=== PATIENT | female | born 1985 | race Hispanic/Latino ===

== ENCOUNTER 2019-10-05 01:06 | Emergency (ER) | payer SELFPAY ==
[~2019-10-05] VITALS: Ht 160 cm; Wt 109.3 kg
[2019-10-05] MEDS ORDERED: SODIUM CHLORIDE 0.9% 1000ML 1,000 ML IV STA (01:37)
--- NOTE | 2019-10-05 01:37 | Emergency Department Note ---
History of Present Illnes History of Present Illness Chief Complaint: Genitourinary History of Present Illness This is a 34 year old female COMPLAINS OF URGENCY, FREQUENCY, PAINFUL URINATION AND FEELS LIKE SHE CAN NOT EMPTY HER BLADDER, PT STATED SHE SAW HER OBGYN TODAY AND WAS GIVEN DIFLUCAN BUT THE PAIN IS SO BAD SHE CAN NOT REST PT STATED PAIN 8/10. SHE HAD LAST YEAR WITHOUT COMPLICATION. PT IS SEXUALLY ACTIVE, DENIES STD . 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 Any updates have been documented here. Past Medical History Recent Fever: No Clinical Suspicion of Infectio: No New/Unexplained Change in Ment: No Past Medical History: None Past Surgical History: Other Surgery: I&D OF LEFT LEG Social History Smoking Cessation: Current every day smoker Counseling Performed: Yes Alcohol Use: None Any Illegal Drug Use: No Other Any Pre-Existing Lines (PICC,: No Review of Systems Review of Systems Constitutional: Reports no symptoms EENTM: Reports no symptoms Cardiovascular: Reports no symptoms Respiratory: Reports no symptoms Gastrointestinal: Reports no symptoms Genitourinary: Reports as per HPI, Reports dysuria, Reports pain (BLAADER PAIN) Musculoskeletal: Reports no symptoms Integumentary: Reports no symptoms Neurological: Reports no symptoms Psychological: Reports no symptoms Endocrine: Reports no symptoms Hematological/Lymphatic: Reports no symptoms Physical Exam Related Data Allergies: Coded Allergies: iodine (Verified Allergy, Severe, 10/05/19) Penicillins (Verified Allergy, Intermediate, 10/05/19) Triage Vital Signs Vital Signs Date Time Temp Pulse Resp B/P (MAP) Pulse Ox O2 Delivery O2 Flow Rate FiO2 10/05/19 01:13 97.3 69 18 134/71 100 Room Air Vital signs reviewed: Yes Physical Exam CONSTITUTIONAL Constitutional: Present well-developed, Present well-nourished, Present obese, Present distressed HENT HENT: Present normocephalic, Present atraumatic, Present oropharynx clear/moist, Present nose normal HENT L/R: Present left ext ear normal, Present right ext ear normal EYES Eyes: Reports PERRL, Reports conjunctivae normal NECK Neck: Present ROM normal PULMONARY Pulmonary: Present effort normal, Present breath sounds normal CARDIOVASCULAR Cardiovascular: Present regular rhythm, Present heart sounds normal, Present ca pillary refill normal, Present normal rate GASTROINTESTINAL Abdominal: Present soft, Present nontender, Present bowel sounds normal GENITOURINARY Genitourinary: Present vagina normal (no ulcer lesions outside) SKIN Skin: Present warm, Present dry MUSCULOSKELETAL Musculoskeletal: Present ROM normal NEUROLOGICAL Neurological: Present alert, Present oriented x 3, Present no gross motor or sensory deficits PSYCHOLOGICAL Psychological: Present mood/affect normal, Present judgement normal Results Laboratory Lab results reviewed: Yes Laboratory comments UA c/w mild UTI, WBC 12 Imaging Imaging results reviewed: Yes Imaging Comments no acute Diagnostics Tests Diagnostic test(s) reviewed: Yes Procedures Procedures Procedure: Forrest placement: indication: acute urinary retention time 1:45 am consent: verbal size: 16 Fr post void residual: 850 cc Assessment & Plan Medical Decision Making MDM acute urinary retention, mild UTI Reassessment Reassessment time: 02:54 Reassessment 850 cc of post void residual, feels much better Assessment & Plan Final Impression: (1) Acute urinary retention (2) Acute lower urinary tract infection Depart Disposition: HOME, SELF-CARE Last Vital Signs Date Time Temp Pulse Resp B/P (MAP) Pulse Ox O2 Delivery O2 Flow Rate FiO2 10/05/19 01:13 97.3 69 18 134/71 100 Room Air Home Meds Active Scripts Promethazine Hcl (PROMETHAZINE HCL) 25 Mg Tablet, 25 MG PO Q6H PRN for NAUSEA, #30 TAB Prov:KOKO EVERETT MD 10/05/19 Acetaminophen/Codeine* (TYLENOL # 3*) 1 Ea Tab, 1 TAB PO Q4HR PRN for pain or cough, #30 Prov:KOKO EVERETT MD 10/05/19 Ibuprofen (IBUPROFEN IB) 200 Mg Tablet, 3 TAB PO Q6H PRN for pain, #60 Prov:KOKO EVERETT MD 10/05/19 Tamsulosin Hcl* (FLOMAX*) 0.4 Mg Cap, 0.4 MG PO DAILY, #10 CAP 0 Refills Prov:KOKO EVERETT MD 10/05/19 Ciprofloxacin Hcl (CIPRO) 500 Mg Tablet, 500 MG PO BID, #20 TAB 0 Refills Prov:KOKO EVERETT MD 10/05/19 Physician Attestation Provider Attestation rec pt to leave [facility] in and f/u with urologist next week but patient declines the Forrest. She asks to remove it before she leaves and she will be back if not able to void KOKO EVERETT MD Oct 05, 2019 01:37
[2019-10-05] MEDS ORDERED: CEFTRIAXONE SOD 1 GM VIAL IV ONE (01:45)
[2019-10-05] MEDS ORDERED: ONDANSETRON HCL INJ 2MG/ML 2ML 2 MG/ML VIAL IV ONE (01:45)
[2019-10-05] MEDS ORDERED: ONDANSETRON HCL 4 MG ORAL DISINTEGRATING TAB PO ONE (01:45)
[2019-10-05] MEDS ORDERED: HYDROCODONE/APAP 5MG-325MG TAB PO ONE (01:45)
[2019-10-05] MEDS ORDERED: KETOROLAC TROMETHAMINE 30 MG/ML VIAL IV ONE (01:45)
[2019-10-05] MEDS ORDERED: KETOROLAC TROMETHAMINE 30 MG/ML VIAL ONE (01:52)
[2019-10-05] MEDS ORDERED: ONDANSETRON HCL INJ 2MG/ML 2ML 2 MG/ML VIAL ONE (01:52)
[2019-10-05] MEDS ORDERED: HYDROCODONE/APAP 5MG-325MG TAB ONE (01:52)
[2019-10-05] MEDS ORDERED: CEFTRIAXONE SOD 1 GM/NS 50 ML 50 ML IV ONE (01:53)
[2019-10-05] MEDS ORDERED: SODIUM CHLORIDE 0.9% 1000ML 1,000 ML ONE (01:53)
--- OUTSIDE RECORDS SUMMARY | 2019-10-05 02:30 | XMS REPORT | Continuity of Care Document ---
Author Author [facility] [employer] ExchangeALETHEA [facility] [employer] Address Unknown Phone Unavailable Care Team Providers Care Tester Compressed Gases Name Role Phone [facility] Information Exchange Unavailable Un available Problems Problem Status Onset Date Classification Date Reported Comments Source Full-term premature rupture of membranes , unspecified as to length of time between rupture and onset of labor 04/04/2018 10/10/2018 [facility] R/O SROM Active 03/19/2018 [facility] Other specified diseases and conditions complicating , childbirth and the puerperium 03/13/2018 09/13/2018 [facility] Obesity complicating , third trimester 02/26/2018 09/11/2018 [facility] Other specified related condit ions, third trimester 02/24/2018 09/13/2018 [facility] 36 weeks gestation of 02/24/2018 09/13/2018 [facility] Obesity complicating , second trimester 01/12/2018 05/21/2018 [facility] Decreased movements, second trimes ter, not applicable or unspecified 12/21/2017 07/10/2018 [facility] 27 weeks gestation of 12/21/2017 07/10/2018 [facility] 23 weeks gestation of 11/17/2017 06/06/2018 [facility] Other specified related condit ions, second trimester 11/17/2017 06/06/2018 [facility] Diseases of the digestive system complic ating , first trimester 09/11/2017 03/25/2018 [facility] Constipation, unspecified 09/05/2017 03/25/2018 [facility] Supervision of other high risk pregnanci es, second trimester 09/05/2017 03/19/2018 [facility] Threatened 08/09/2017 08/12/2017 [facility] VAG BLEEDING 8 WKS PREG Active 08/09/2017 [facility] Other specified related condit ions, unspecified trimester 07/26/2017 07/29/2017 [facility] Vomiting, unspecified 07/26/2017 07/29/2017 [facility] 5WKS PREG/ABD PAIN Active 07/26/2017 [facility] Acute pharyngitis due to other specified organisms 07/24/2017 07/27/2017 [facility] SORE THROAT Active 07/23/2017 [facility] Patient currently (finding) Resolved 06/11/2017 Problem 10/10/2018 [facility] VAGINAL DELIVERY Active 04/13/2017 [facility] Inflammatory disease of cervix uteri 01/26/2017 01/29/2017 [facility] Unspecified injury of external genitals, initial encounter 01/26/2017 01/29/2017 [facility] ABD PAIN Active 01/26/2017 [facility] Low back pain (disorder) Active 09/02/2013 Problem 10/10/2018 Data migrated from [employer] on 10/07. [facility] Lumbar radiculopathy (disorder) Active 09/02/2013 Problem 10/10/2018 Data migrated from [employer] on 10/07. [facility] ABDOMINAL PAIN Active 08/09/2011 [facility] FEVER CHILLS ABDOMINAL PAIN LOWER BACK PAIN SEVERE HEA D Active 02/14/2000 [facility] Obesity, unspecified 08/14/2018 [facility] Encounter for screening for fe santosh growth retardation 08/14/2018 [facility] Maternal care for (suspected) chromosoma l abnormality in fetus, not applicable or unspecified 08/14/2018 [facility] Family history of other congenital malfo rmations, deformations and chromosomal abnormalities 08/14/2018 [facility] 32 weeks gestation of 08/14/2018 [facility] Infectious disease (disorder) Active Problem [facility] Pain (finding) Active Problem 10/10/2018 [facility] Pyelonephritis (disorder) Acti ve Problem [facility] 20 weeks gestation of 05/21/2018 [facility] 11 weeks gestation of 03/19/2018 [facility] Cellulitis (morphologic abnormality) Active Problem [facility] Other specified noninflammatory disorders of vagina 09/13/2018 [facility] Personal history of nicotine dependence 09/13/2018 [facility] 12 weeks gestation of 03/25/2018 [facility] Periumbilical pain 06/06/2018 [facility] Cellulitis Active Problem 08/15/2011 [facility] Infection Active Problem 08/15/2011 [facility] Nausea Inactive Problem 08/15/2011 [facility] Pain Active Problem 08/15/2011 [facility] Pyelonephritis Active Problem 08/15/2011 [facility] Single live 10/10/2018 [facility] 40 weeks gestation of 10/10/2018 [facility] Secondary uterine inertia 10/10/2018 [facility] Obstructed labor due to incomplete rotat ion of head, not applicable or unspecified 10/10/2018 [facility] ADMINISTRTVE ENCOUNT NOS Active [facility] Medications Medication Details Route Status Patient Instructions Ordering Provider Order Date Source ibuprofen 800 mg oral tablet 8 00 mg, PO, Q8H, PRN Pain, Take with food, X 10 day, # 36 tab, 0 Refill(s) No Longer Active 03/23/2018 [facility] Docusate Sodium 100 MG Oral Capsule [Colace] 100 mg = 1 cap, PO, BID, PRN Constipation, # 20 cap, 0 Refill(s) Active 03/23/2018 [facility] Acetaminophen 300 MG / Codeine Phosphate 30 MG Oral Tablet [Tylenol with Codeine #3] 1 - 2 tab, PO, Q4H, PRN Pain, X 3 day, # 21 tab, 0 Refill(s) No Longer Active 03/23/2018 [facility] Multivitamins oral tablet 1 tab, Route: PO, Drug Form: TAB, Dosing Weight 120, kg, Daily, Start date: 03/21/18 9:00:00 FILLETER, Duration: 30 day, Stop date: 04/19/18 9:00:00 FILLETER Inactive 03/21/2018 [facility] Ibuprofen Notes: (Same as: Mot rin) "Do Not Crush" Take with food. No Longer Active 03/21/2018 [facility] Acetaminophen 325 MG / Hydrocodone Deepti trate 5 MG Oral Tablet Notes: (Same as: [place] 325/5) Do not ex ceed 4gm/day of acetaminophen. No Longer Active 03/21/2018 [facility] Acetaminophen 325 MG / Hydrocodone Deepti trate 10 MG Oral Tablet Notes: Do not exceed 4gm/day of acetamin ophen. (Same as: [place] 325/10) No Longer Active 03/21/2018 [facility] Lactated Ringers IV 1,000 mL 1 ,000 mL, Rate: 100 ml/hr, Infuse over: 10 hr, Route: IV, Dosing Weight 120 kg, Total Volume: 1,000, Start date: 03/21/18 1:06:00 FILLETER, Duration: 30 day, Stop date: 04/20/18 1:05:00 FILLETER, 2.36, m2 No Longer Active 03/21/2018 [facility] Oxytocin 30 unit, 500 mL, Rate : 42 ml/hr, Infuse over: 11.9 hr, Dosing Weight 120, kg, Route: IV, Total Volume: 500 mL, Start date: 03/21/18 1:06:00 FILLETER, Duration: 2 day, Stop date: 03/23/18 1:05:00 FILLETER, Replace Every: 11.9 hr No Longer Activ e 03/21/2018 [facility] lanolin topical cream Notes: ( Same as:Lanolin) No Longer Active 03/21/2018 [facility] Simethicone Notes: (Same as: M ylicon) No Longer Active 03/21/2018 [facility] Acetaminophen Notes: Do not ex ceed 4 gm/day. (Same as: Tylenol) No Longer Active 03/21/2018 [facility] zolpidem Notes: (Same As: Ambi en) No Longer Active 03/21/2018 [facility] Benzocaine / Menthol Notes: Sa me as: Cepacol No Longer Active 03/21/2018 [facility] Docusate Notes: (Same as: Cola ce) (Do Not Crush) No Longer Active 03/21/2018 [facility] Bisacodyl Notes: (Same As: Dul colax, Bisco-Lax) No Longer Active 03/21/2018 [facility] Ibuprofen Notes: (Same as: Mot rin) "Do Not Crush" Take with food. Inactive 03/21/2018 [facility] diphenhydrAMINE (ANES) Route: IV, Drug form: INJ, ONCE, Stop date: 03/20/18 23:03:00 FILLETER Inactive 03/21/2018 [facility] morphine Sulfate (ANES) Route: IV, Drug form: INJ, ONCE, Stop date: 03/20/18 23:02:00 FILLETER Inactive 03/21/2018 [facility] fentaNYL (ANES) Route: IV, Nate g form: INJ, ONCE, Stop date: 03/20/18 23:02:00 FILLETER Inactive 03/21/2018 [facility] Oxytocin 30 unit, 500 mL, Rate : 42 ml/hr, Infuse over: 11.9 hr, Dosing Weight 120, kg, Route: IV, Total Volume: 500 mL, Start date: 03/20/18 23:00:00 FILLETER, Duration: 2 day, Stop date: 03/22/18 22:59:00 FILLETER, Re place Every: 11.9 hr No Longer Active 03/21/2018 [facility] Lactated Ringers IV 1,000 mL 1 ,000 mL, Rate: 100 ml/hr, Infuse over: 10 hr, Route: IV, Dosing Weight 120 kg, Total Volume: 1,000, Start date: 03/20/18 23:00:00 FILLETER, Duration: 30 day, Stop date: 04/19/18 22:59:00 FILLETER, 2.36, m2 No Longer Active 03/21/2018 [facility] Ondansetron Notes: (Same as: Eduard saxena) MEDICATION WASTE Product Size: 4 mg Product Wasted: _0__ mg No Longer Active 03/21/2018 [facility] Docusate Notes: (Same as: Cola ce) (Do Not Crush) No Longer Active 03/21/2018 [facility] Bisacodyl Notes: (Same As: Dul colax, Correctol) (Do Not Crush) "Do Not Crush" No Longer Active 03/21/2018 [facility] lanolin topical Notes: (Same a s:Lanolin) No Longer Active 03/21/2018 [facility] zolpidem Notes: (Same As: Ambi en) No Longer Active 03/21/2018 [facility] M-M-R II Notes: (Same as: M-M- R II) (yjdmpex-dcauz-eppnqxr virus vaccine 0.5 ml INJ VL) WASTE: F/P - Red; E -Red GIVE PRIOR TO DISCHARGE No Longer Active 03/21/2018 [facility] Benzocaine 200 MG/ML Topical [place] [Dermoplast] Notes: (Same As: Dermoplast) WASTE: Aerosol - Return to Pharmacy FOR EXTERNAL USE ONLY No Longer Active 03/21/2018 [facility] Methylergonovine Notes: (Same as:Methergine) No Longer Active 03/21/2018 [facility] Dermoplast 20% topical spray N otes: (Same As: Dermoplast) WASTE: Aerosol - Return to Pharmacy FOR EXTERNAL USE ONLY No Longer Active 03/21/2018 [facility] midazolam (ANES) Route: IV, Dr ug form: SOLN, ONCE, Stop date: 03/20/18 22:56:00 FILLETER Inactive 03/21/2018 [facility] phenylephrine (ANES) Route: IV , Drug form: INJ, ONCE, Stop date: 03/20/18 22:56:00 FILLETER Inactive 03/21/2018 [facility] acetaminophen (ANES) Route: IV , Drug form: INJ, ONCE, Stop date: 03/20/18 22:46:00 FILLETER Inactive 03/21/2018 [facility] gentamicin (ANES) Route: IV, D rug form: INJ, ONCE, Stop date: 03/20/18 22:36:00 FILLETER Inactive 03/21/2018 [facility] EPINEPHrine-lidocaine (ANES) R oute: EPIDURAL, Drug Form: INJ, ONCE, Stop date: 03/20/18 22:36:00 FILLETER Inactive 03/21/2018 [facility] ondansetron (ANES) Route: IV, Drug form: INJ, ONCE, Stop date: 03/20/18 22:36:00 FILLETER Inactive 03/21/2018 [facility] fentaNYL (ANES) Route: EPIDURA L, Drug form: INJ, ONCE, Stop date: 03/20/18 22:36:00 FILLETER Inactive 03/21/2018 [facility] dexamethasone (ANES) Route: IV , Drug form: INJ, ONCE, Stop date: 03/20/18 22:36:00 FILLETER Inactive 03/21/2018 [facility] oxytocin (ANES) 30 unit Route: IV, Drug form: SOLN, Start date: 03/20/18 22:23:00 FILLETER, Stop date: 03/20/18 23:23:00 FILLETER Inactive 03/21/2018 [facility] Naloxone Notes: Same as Narcan No Longer Active 03/21/2018 [facility] Gentamicin Notes: TIME CRITICA L MEDICATION (Same as Garamycin) For adult patients only: Round to nearest 10 mg per Medical Staff approval No Longer Active 03/21/2018 [facility] Clindamycin 900 mg, 50 mL, Rou te: IVPB, Drug form: INJ, ONCE, Dosing Weight 120, kg, Start date: 03/20/18 22:00:00 FILLETER, Stop date: 03/20/18 22:00:00 FILLETER, ABX Indication: Surgical Prophylaxis Inactive 03/21/2018 [facility] Lactated Ringers Injection IV (ANES) 1000 mL Route: IV, Total Volume: 1,000, Start date: 03/20/18 21:56:00 FILLETER, Stop date: 03/20/18 22:56:00 FILLETER Inactive 03/21/2018 [facility] Diphenhydramine Notes: (Same a s: Benadryl) No Longer Active 03/21/2018 [facility] Nalbuphine Notes: (Same As: Nu maxine) No Longer Active 03/21/2018 [facility] Hydromorphone Notes: (Same as: Dilaudid) No Longer Active 03/21/2018 [facility] Promethazine Notes: Do not giv e IV push. (Same as: Phenergan) No Longer Active 03/21/2018 [facility] Dexamethasone Notes: Concentra tion: 4mg/ml No Longer Active 03/21/2018 [facility] Ondansetron Notes: (Same as: Eduard saxena) MEDICATION WASTE Product Size: 4 mg Product Wasted: _0__ mg No Longer Active 03/21/2018 [facility] Oxycodone Hydrochloride 5 MG Oral Tablet Notes: (Same as: Roxicodone) No Longer Active 03/21/2018 [facility] Acetaminophen Notes: Max aceta minophen 4000 mg/day (4 gm/day). (Same as: Tylenol Extra Strength) No Longer Active 03/21/2018 [facility] Promethazine Notes: Do not giv e IV push. (Same as: Phenergan) No Longer Active 03/21/2018 [facility] Flumazenil Notes: (Same as: Ro mazicon) No Longer Active 03/21/2018 [facility] Dexamethasone Notes: Concentra tion: 4mg/ml No Longer Active 03/21/2018 [facility] Ondansetron Notes: (Same as: Eduard saxena) MEDICATION WASTE Product Size: 4 mg Product Wasted: _0__ mg No Longer Active 03/21/2018 [facility] Naloxone Notes: Same as Narcan No Longer Active 03/21/2018 [facility] Hydromorphone Notes: (Same as: Dilaudid) No Longer Active 03/21/2018 [facility] Calcium Chloride 0.0014 MEQ/ML / Potassi um Chloride 0.004 MEQ/ML / Sodium Chloride 0.103 MEQ/ML / Sodium Lactate 0.028 MEQ/ML Injectable Solution 1,000 mL, Rate: 125 ml/hr, Infuse over: 8 hr, Route: IV, Dosing Weight 120 kg, Total Volume: 1,000, Start date: 03/20/18 21:25:00 FILLETER, Duration: 30 day, Stop date: 04/19/18 21:24:00 FILLETER, 2.36, m2 Inactive 03/21/2018 [facility] Metoclopramide 10 MG Oral Tablet [Reglan] Notes: (Same as: Reglan) Take 30 min before meals Inactive 03/21/2018 [facility] Zofran ODT Notes: (Same as: Zo magalis ODT) Inactive 03/21/2018 [facility] Ondansetron Notes: (Same as: Eduard saxena) MEDICATION WASTE Product Size: 4 mg Product Wasted: _0__ mg Inactive 03/21/2018 [facility] BD Normal Saline Flush Notes: (Same as: BD Posiflush) No Longer Active 03/20/2018 [facility] Diphenhydramine Notes: (Same a s: Benadryl) Inactive 03/20/2018 [facility] Bupivacaine 0.167% + fentaNYL 4 mcg/ml E pidural CADD 200 mL Route: EPIDURAL, Continuous Rate: 10, ml /hr, Infusion site: Lumbar, [employer] dose 5 mL, [employer] dose lockout: 15 minutes, 1 Hour limit: 30 mL, Clinician Bolus: 5 mL, 200, mL, Start date: 03/20/18 11:09:00 FILLETER, Duration: 30, day, Drug Form: INJ, Total volume: 2... No Longer Active 03/20/2018 [facility] Famotidine Notes: (Same as: Pe pcid) Can be dilute in 5- 10cc NS IVP: Slow IV push over at least 2 minutes. No Longer Active 03/20/2018 [facility] Misoprostol Notes: (Same as:Cy totec) Take with food No Longer Active 03/20/2018 [facility] Methylergonovine Notes: (Same as:Methergine) No Longer Active 03/20/2018 [facility] Carboprost Notes: (Same As: He mabate) No Longer Active 03/20/2018 [facility] Citric Acid / sodium citrate N otes: (Same As: Bicitra) Inactive 03/20/2018 [facility] Oxytocin 30 unit, 500 mL, Rate : 42 ml/hr, Infuse over: 11.9 hr, Dosing Weight 120, kg, Route: IV, Total Volume: 500 mL, Start date: 03/20/18 10:24:00 FILLETER, Duration: 2 day, Stop date: 03/22/18 10:23:00 FILLETER, Re place Every: 11.9 hr Inactive 03/20/2018 [facility] Ondansetron Notes: (Same as: Eduard saxena) MEDICATION WASTE Product Size: 4 mg Product Wasted: __0_ mg Inactive 03/20/2018 [facility] Lidocaine Hydrochloride 10 MG/ML Injectable Solution Notes: Preservative free. (Same as: Xylocaine MPF) No Longer Active 03/20/2018 [facility] Terbutaline Notes: DO NOT US E IN MARINE DRILLER AREA (Same As: Brethine) No Longer Active 03/20/2018 [facility] Butorphanol Notes: (Same As: S tadol) No Longer Active 03/20/2018 [facility] Ibuprofen Notes: (Same as: Mot rin) "Do Not Crush" Take with food. Inactive 03/20/2018 [facility] Acetaminophen 325 MG / Hydrocodone Deepti trate 5 MG Oral Tablet Notes: (Same as: [place]ora 325/5) Do not ex ceed 4gm/day of acetaminophen. No Longer Active 03/20/2018 [facility] Calcium Chloride 0.0014 MEQ/ML / Potassi um Chloride 0.004 MEQ/ML / Sodium Chloride 0.103 MEQ/ML / Sodium Lactate 0.028 MEQ/ML Injectable Solution 1,000 mL, 1,000 ml/hr, Infuse Over: 1 hr , Route: IV, 1,000, Drug form: INJ, ONCE, Dosing Weight 120 kg, Start date: 03/20/18 10:24:00 FILLETER, Stop date: 03/20/18 10:24:00 FILLETER, Bolus for regional anesthesia per unit routine Inactive 03/20/2018 [facility] Lactated Ringers IV 1,000 mL 1 ,000 mL, Rate: 125 ml/hr, Infuse over: 8 hr, Route: IV, Dosing Weight 120 kg, Total Volume: 1,000, Start date: 03/20/18 10:24:00 FILLETER, Duration: 30 day, Stop date: 04/19/18 10:23:00 FILLETER, 2.36, m2 Inactive 03/20/2018 [facility] 1 oral capsule 0 Refi ll(s) Active 03/20/2018 [facility] Saline Flush 0.9% Notes: (Same as: BD Posiflush) Inactive 09/05/2017 [facility] Nitrofurantoin 100 MG Oral Capsule [Macrobid] 100 mg = 1 cap, PO, BID, X 7 day, # 14 cap, 0 Refill(s) Active 08/09/2017 [facility] Saline Flush 0.9% Notes: (Same as: BD Posiflush) Inactive 08/09/2017 [facility] Zofran 4 mg, Route: IVP, Drug form: INJ, ONCE, Dosing Weight 110.455, kg, Priority: STAT, Start date: 07/26/17 19:06:00 CDT, Stop date: 07/26/17 19:06:00 CDT Inactive 07/27/2017 [facility] Sodium Chloride 0.9% (Bolus) IV 1,000 mL, 1,000 ml/hr, Infuse Over: 1 hr, Route: IV, 1,000, Drug form: INJ, ONCE, Priority: STAT, Dosing Weight 110.455 kg, Start date: 07/26/17 17:15:00 CDT, Stop date: 07/26/17 17:15:00 CDT Inactive 07/26/2017 [facility] Saline Flush 0.9% Notes: (Same as: BD Posiflush) Inactive 07/26/2017 [facility] Metoclopramide 10 mg, Route: I ROD CUP FILLER, Drug form: INJ, ONCE, Dosing Weight 110.455, kg, Priority: STAT, Start date: 07/26/17 17:15:00 CDT, Stop date: 07/26/17 17:15:00 CDT Inactive 07/26/2017 [facility] Azithromycin 5 Day Dose Pack 250 mg oral tablet 250 mg = 1 tab, PO, Daily, TAKE 2 TABLETS ON DAY 1; TAKE 1 TABLET ON DAYS 2 - 5, X 5 day, # 6 tab, 0 Refill(s) Active 07/24/2017 [facility] Ondansetron 4 MG Disintegrating Tablet [Zofran] 4 mg = 1 tab, PO, TID, PRN Nausea and Vomiting, # 21 tab, 0 Refill(s) Active 07/24/2017 [facility] Metoclopramide 10 MG Oral Tablet Notes: (Same as: Reglan) Take 30 min before meals Inactive 07/24/2017 [facility] Acetaminophen Notes: Do not ex ceed 4 gm/day. (Same as: Tylenol) Inactive 07/24/2017 [facility] Saline Flush 0.9% Notes: (Same as: BD Posiflush) Inactive 07/24/2017 [facility] Sodium Chloride 0.9% (Bolus) IV 1,000 mL, 1000 ml/hr, Infuse Over: 1 hr, Route: IV, 1,000, Drug form: INJ, ONCE, Priority: STAT, Dosing Weight 100 kg, Start date: 07/24/17 6:12:00 CDT, Stop date: 07/24/17 6:12:00 CDT Inactive 07/24/2017 [facility] tramadol hydrochloride 50 MG Oral Tablet 50 mg = 1 tab, PO, Q6H, PRN Pain, X 5 day, # 24 tab, 0 Refill(s) Active 01/26/2017 [facility] Azithromycin 16.7 MG/ML Oral Suspension 1 gm, 1 ea, Route: PO, ONCE, Dosing Weight 100, kg, Start date: 01/26/17 8:15:00 FILLETER, Stop date: 01/26/17 8:15:00 FILLETER, ABX Indication: Genital Tract Infection Inactive 01/26/2017 [facility] Ceftriaxone 250 mg, Route: IM, Drug form: PDR/INJ, ONCE, Dosing Weight 100, kg, Priority: STAT, Start date: 01/26/17 8:14:00 FILLETER, Stop date: 01/26/17 8:14:00 FILLETER, ABX Indication: Genital Tract Infection Inactive 01/26/2017 [facility] Acetaminophen 325 MG / Hydrocodone Deepti trate 5 MG Oral Tablet 1 tab, Route: PO, Dosing Weight 100, kg, ONCE, STAT, Start date: 01/26/17 8:12:00 FILLETER, Stop date: 01/26/17 8:12:00 FILLETER Inactive 01/26/2017 [facility] Lotrisone 1 appl, Route: TOP, BID, Drug form: CRM, Start date: 08/13/11 9:00:00, Duration: 30 day, Stop date: 09/11/11 17:00:00 TOP No Longer Active [place] 08/12 [facility] cefadroxil 500 mg oral capsule 1,000 mg, 2 cap, PO, Q12H, 56 cap, Substitution Allowed, CAP PO Active Chap [facility] 08/12/2011 [facility] Lovenox 40 mg, 0.4 mL, Route: SUB-Q, Drug form: INJ, Daily, Start date: 08/11/11 9:00:00, Duration: 30 day, Stop date: 09/09/11 9:00:00 SUB-Q No Longer Active [facility] 08/11/2011 [facility] Normosol-R IV 1,000 mL 1,000 m L, Rate: 75 ml/hr, Infuse over: 13.3 hr, Route: IV, Dosing Weight 151.847 kg, Total Volume: 1,000, Start date: 08/10/11 10:52:00, Duration: 30 day, Stop date: 09/09/11 10:51:00 IV No Longer Active [place] 07/15 [facility] Normosol-M IV 1000 mL 1,000 mL , Rate: 75 ml/hr, Infuse over: 13.3 hr, Route: IV, Dosing Weight 151.847 kg, Total Volume: 1,000, Start date: 08/10/11 10:42:00, Duration: 30 day, Stop date: 09/09/11 10:41:00 IV No Longer Active [facility] 07/15 [facility] potassium chloride 30 mEq, 15 mL, Route: IVPB, Drug form: INJ, ONCE, Start date: 08/10/11 10:42:00, Stop date: 08/10/11 10:42:00 IVPB No Longer Active [facility] 07/15 [facility] vancomycin 1.5 gm, 500 mL, Rou te: IVPB, Drug form: SOLN, Q12H, Start date: 08/10/11 8:00:00, Duration: 30 day, Stop date: 09/08/11 20:00:00 IVPB No Longer Active [place] 08/10/2011 [facility] D5W 1/2NS + KCL 20mEq/L 1000ml (Premix) 1,000 mL 1,000 mL, Rate: 125 ml/hr, Infuse over: 8 hr, Route: IV, Dosing Weight 151.847 kg, Total Volume: 1,000, Start date: 08/10/11 0:33:00, Duration: 30 day, Stop date: 09/09/11 0:32:00 IV No Longer Active [facility] 08/10/2011 [facility] acetaminophen 500 mg, 1 tab, R oute: PO, Drug form: TAB, Q4H, PRN Fever, Start date: 08/09/11 20:17:00, Duration: 30 day, Stop date: 09/08/11 20:16:00 [facility] vancomycin 2 gm, 500 mL, Route : IVPB, Drug form: SOLN, ONCE, Start date: 08/09/11 20:00:00, Stop date: 08/09/11 20:00:00 IVPB No Longer Active [place] 08/10/2011 [facility] Merrem 1 gm, Route: IVPB, ABXQ 8H, Start date: 08/09/11 19:00:00, Duration: 30 day, Stop date: 09/08/11 11:00:00 IVPB No Longer Active [place] 08/10/2011 [facility] Protonix 40 mg, Route: IVP, Be fore Dinner, Start date: 08/09/11 16:30:00, Stop date: 09/07/11 16:30:00 IVP No Longer Active [place] 08/09/2011 [facility] [place] [facility] Lovenox 150 mg, 1 mL, Route: S UB-Q, Drug form: INJ, Q12H, Priority: STAT, Start date: 08/09/11 16:08:00, Duration: 30 day, Stop date: 09/08/11 16:00:00 SUB-Q No Longer Active [place] 08/09/2011 [facility] Zofran 4 mg, 2 mL, Route: IVP, Drug form: INJ, Q4H, PRN Nausea, Start date: 08/09/11 14:55:00, Duration: 30 day, Stop date: 09/08/11 14:54:00 IVP No Longer Active [facility] 08/09/2011 [facility] meperidine 25 mg, 0.5 mL, Rout e: IV, Drug form: INJ, Q4H, PRN Pain, Start date: 08/09/11 14:55:00, Duration: 4 day, Stop date: 08/13/11 14:54:00 IV No Longer Active [facility] 08/09/2011 [facility] Rocephin 2 gm, Route: IVPB, ON CE, Start date: 08/09/11 12:30:00, Stop date: 08/09/11 12:30:00 IVPB No Longer Active [facility] 08/09/2011 [facility] ketorolac 30 mg/mL injectable solution 30 mg, 1 mL, Route: IV, Drug form: INJ, Q6H, PRN Pain, Start date: 08/09/11 11:56:00, Duration: 4 day, Stop date: 08/13/11 11:55:00 IV No Longer Active [facility] 08/09/2011 [facility] [place] [facility] Dextrose 5% with 0.45% NaCl IV 1,000 mL 1,000 mL, Rate: 125 ml/hr, Infuse over: 8 hr, Route: IV, Dosing Weight 145.455 kg, Total Volume: 1,000, Start date: 08/09/11 11:28:00, Duration: 30 day, Stop date: 09/08/11 11:27:00 IV No Longer Active [place] 08/09/2011 [facility] [place] [facility] Allergies, Adverse Reactions, Alerts Substance Category Reaction Severity Reaction type Status Date Reported Comments Source penicillins<sup>1</sup> Assert ion PENICILLINS Drug allergy Active 09/02/2013 Data migrated from [employer] on 10/06. Originally documented as PENICILLIN. [facility] diazepam Assertion Drug allergy Active [facility] Celebrex Assertion Drug allergy Active [facility] MiraLax Assertion Drug allergy Active [facility] Food Seafood Assertion Propensity to adverse reacti ons to substance Active [facility] iodine Assertion Drug allergy Active [facility] Morphine Sulfate ADD-[place] A ssertion Drug aller gy Active [facility] penicillins Assertion PENICILLINS Drug allergy Active [facility] Immunizations Immunization Date Given Site Status Last Updated Comments Source diphtheria/pertussis, acel/tetanus adult 03/22/2018 Left Deltoid completed [facility] Results Order Name Results Value Reference Range Date Interpretation Comments Source CHEM PANEL A/G Ratio 0.6 0.7 - 1.6 03/23/2018 [facility] CHEM PANEL eGFR 127 03/23/2018 Result Comment: The eGFR is calculated using the CKD-EPI formula. In most young, healthy individuals the eGFR will be >90 mL/min/1.73m2. The eGFR declines with age. An eGFR of 60-89 may be normal in some populations, particularly the elderly, for whom the CKD-EPI formula has not been extensively validated. Use of the eGFR is not recommended in the following populations:

Individuals with unstable creatinine concentrations, including patients and those with serious co-morbid conditions.

Patients with extremes in muscle mass or diet.

The data above are obtained from the National Kidney Disease Education Program (NKDEP) which additionally recommends that when the eGFR is used in patients with extremes of body mass index for purposes of drug dosing, the eGFR should be multiplied by the estimated BMI. [facility] CHEM PANEL Globulin 3.8 2.7 - 4.2 03/23/2018 [facility] CHEM PANEL B/C Ratio 15 6 - 25 03/23/2018 [facility] CHEM PANEL AGAP 5.1 10.0 - 20.0 03/23/2018 [facility] CHEM PANEL Bili Total 0.4 0.2 - 1.3 03/23/2018 [facility] CHEM PANEL CO2 32 24 - 32 03/23/2018 [facility] CHEM PANEL Chloride Lvl 106 95 - 109 03/23/2018 [facility] CHEM PANEL Calcium Lvl 8.3 8.5 - 10.5 03/23/2018 [facility] CHEM PANEL Creatinine Lvl 0.54 0.50 - 1.40 03/23/2018 [facility] CHEM PANEL Glucose Lvl 79 70 - 99 03/23/2018 [facility] CHEM PANEL BUN 8 7 - 22 03/23/2018 [facility] CHEM PANEL Sodium Lvl 139 135 - 145 03/23/2018 [facility] CHEM PANEL Potassium Lvl 4.1 3.5 - 5.1 03/23/2018 [facility] CHEM PANEL Albumin Lvl 2.4 3.5 - 5.0 03/23/2018 [facility] CHEM PANEL Total Protein 6.2 6.4 - 8.4 03/23/2018 [facility] CHEM PANEL Alk Phos 155 39 - 136 03/23/2018 [facility] CHEM PANEL AST 41 0 - 37 03/23/2018 [facility] CHEM PANEL ALT 72 0 - 65 03/23/2018 [facility] CHEM PANEL eGFR 130 03/22/2018 Result Comment: The eGFR is calculated using the CKD-EPI formula. In most young, healthy individuals the eGFR will be >90 mL/min/1.73m2. The eGFR declines with age. An eGFR of 60-89 may be normal in some populations, particularly the elderly, for whom the CKD-EPI formula has not been extensively validated. Use of the eGFR is not recommended in the following populations:

Individuals with unstable creatinine concentrations, including patients and those with serious co-morbid conditions.

Patients with extremes in muscle mass or diet.

The data above are obtained from the National Kidney Disease Education Program (NKDEP) which additionally recommends that when the eGFR is used in patients with extremes of body mass index for purposes of drug dosing, the eGFR should be multiplied by the estimated BMI. [facility] CHEM PANEL A/G Ratio 0.6 0.7 - 1.6 03/22/2018 [facility] CHEM PANEL Globulin 3.3 2.7 - 4.2 03/22/2018 [facility] CHEM PANEL Glucose Lvl 89 70 - 99 03/22/2018 [facility] CHEM PANEL BUN 8 7 - 22 03/22/2018 [facility] CHEM PANEL B/C Ratio 16 6 - 25 03/22/2018 [facility] CHEM PANEL AGAP 10.9 10.0 - 20.0 03/22/2018 [facility] CHEM PANEL Potassium Lvl 3.9 3.5 - 5.1 03/22/2018 [facility] CHEM PANEL Sodium Lvl 138 135 - 145 03/22/2018 [facility] CHEM PANEL Creatinine Lvl 0.50 0.50 - 1.40 03/22/2018 [facility] CHEM PANEL Chloride Lvl 106 95 - 109 03/22/2018 [facility] CHEM PANEL ALT 82 0 - 65 03/22/2018 [facility] CHEM PANEL Albumin Lvl 2.1 3.5 - 5.0 03/22/2018 [facility] CHEM PANEL Bili Total 0.5 0.2 - 1.3 03/22/2018 [facility] CHEM PANEL Alk Phos 137 39 - 136 03/22/2018 [facility] CHEM PANEL AST 52 0 - 37 03/22/2018 [facility] CHEM PANEL Total Protein 5.4 6.4 - 8.4 03/22/2018 [facility] CHEM PANEL Calcium Lvl 8.6 8.5 - 10.5 03/22/2018 [facility] CHEM PANEL CO2 25 24 - 32 03/22/2018 [facility] HEMATOLOGY Hgb 10.9 12.0 - 16.0 03/21/2018 [facility] HEMATOLOGY Hct 31.9 36.0 - 48.0 03/21/2018 [facility] BLOOD BANK RESULTS Antibody Scrn Negative (03/20/18 10:50 AM) 03/20/2018 [facility] BLOOD BANK RESULTS ABO/Rh O POS 03/20/2018 [facility] HEMATOLOGY Basophils 0.4 0.0 - 1.0 03/20/2018 [facility] HEMATOLOGY Lymphocytes # 1.2 1.0 - 5.5 03/20/2018 [facility] HEMATOLOGY Monocytes # 0.4 0.0 - 0.8 03/20/2018 [facility] HEMATOLOGY Eosinophils # 0.1 0.0 - 0.5 03/20/2018 [facility] HEMATOLOGY Neutrophils # 8.4 1.5 - 8.1 03/20/2018 [facility] HEMATOLOGY Segs 82.4 45.0 - 75.0 03/20/2018 [facility] HEMATOLOGY Eosinophils 0.8 0.0 - 4.0 03/20/2018 [facility] HEMATOLOGY Lymphocytes 12.0 20.0 - 40.0 03/20/2018 [facility] HEMATOLOGY Monocytes 4.4 2.0 - 12.0 03/20/2018 [facility] HEMATOLOGY MPV 8.9 7.4 - 10.4 03/20/2018 [facility] HEMATOLOGY Platelet 187 133 - 450 03/20/2018 [facility] HEMATOLOGY RDW 12.6 11.5 - 14.5 03/20/2018 [facility] HEMATOLOGY WBC 10.1 3.7 - 10.4 03/20/2018 [facility] HEMATOLOGY RBC 3.99 4.20 - 5.40 03/20/2018 [facility] HEMATOLOGY Hgb 12.4 12.0 - 16.0 03/20/2018 [facility] HEMATOLOGY Hct 36.7 36.0 - 48.0 03/20/2018 [facility] HEMATOLOGY MCV 92.1 80.0 - 98.0 03/20/2018 [facility] HEMATOLOGY MCHC 33.8 32.0 - 36.0 03/20/2018 [facility] HEMATOLOGY MCH 31.1 27.0 - 31.0 03/20/2018 [facility] IMMUNOLOGY HIV. Negat andrey *NA* (03/20/18 10:50 AM) Negative 03/20/2018 [facility] IMMUNOLOGY Hep Bs Ag Negat andrey *NA* (03/20/18 10:50 AM) Negative 03/20/2018 [facility] IMMUNOLOGY Treponemal Ab Non-R eactive *NA* (03/20/18 10:50 AM) Non 03/20/2018 [facility] BODY FLUIDS Amnisure ROM Posi tive *ABN* (03/20/18 9:50 AM) Negative 03/20/2018 [facility] DRUG SCREEN UDS Note See Note *NA* (12/21/17 11:29 AM) 12/21/2017 [facility] DRUG SCREEN U Cannab Scr Nega tive *NA* (12/21/17 11:29 AM) Negative 12/21/2017 [facility] DRUG SCREEN U Cocaine Scr Nega tive *NA* (12/21/17 11:29 AM) Negative 12/21/2017 [facility] DRUG SCREEN U Amph Scr Nega tive *NA* (12/21/17 11:29 AM) Negative 12/21/2017 [facility] DRUG SCREEN U Benzodiaz Scr Nega tive *NA* (12/21/17 11:29 AM) Negative 12/21/2017 [facility] DRUG SCREEN U Claire Scr Nega tive *NA* (12/21/17 11:29 AM) Negative 12/21/2017 [facility] DRUG SCREEN U Opiate Scr Nega tive *NA* (12/21/17 11:29 AM) Negative 12/21/2017 [facility] DRUG SCREEN U Phencyclidine Scr Nega tive *NA* (12/21/17 11:29 AM) Negative 12/21/2017 [facility] URINE AND STOOL UA Bacteria Occasional /HPF None Seen /HPF 12/21/2017 [facility] URINE AND STOOL UA RBC <1 0 - 2 12/21/2017 [facility] URINE AND STOOL UA WBC 1 0 - 5 12/21/2017 [facility] URINE AND STOOL UA Sq Epi Occasional /LPF Few /LPF 12/21/2017 [facility] URINE AND STOOL UA Leuk Est Negative (12/21/17 11:29 AM) Negative 12/21/2017 [facility] URINE AND STOOL UA Protein Negative (12/21/17 11:29 AM) Negative 12/21/2017 [facility] URINE AND STOOL UA Glucose Negative *NA* (12/21/17 11:29 AM) Negative 12/21/2017 [facility] URINE AND STOOL UA pH 7.0 5.0 - 8.0 12/21/2017 [facility] URINE AND STOOL UA Spec Grav 1.001 <=1.030 12/21/2017 [facility] URINE AND STOOL UA Urobilinogen <=1.0 mg/dL 0.1 - 1.0 12/21/2017 [facility] URINE AND STOOL UA Nitrite Negative (12/21/17 11:29 AM) Negative 12/21/2017 [facility] URINE AND STOOL UA Ketones Negative *NA* (12/21/17 11:29 AM) Negative 12/21/2017 [facility] URINE AND STOOL UA Bili Negative *NA* (12/21/17 11:29 AM) Negative 12/21/2017 [facility] URINE AND STOOL UA Blood Negative (12/21/17 11:29 AM) Negative 12/21/2017 [facility] URINE AND STOOL UA Color Light Yellow *NA* (12/21/17 11:29 AM) Yellow 12/21/2017 [facility] URINE AND STOOL UA Turbidity Clear (12/21/17 11:29 AM) Clear 12/21/2017 [facility] CHEM PANEL A/G Ratio 0.7 0.7 - 1.6 11/18/2017 [facility] CHEM PANEL B/C Ratio 16 6 - 25 11/18/2017 [facility] CHEM PANEL AGAP 10.2 10.0 - 20.0 11/18/2017 [facility] CHEM PANEL Globulin 3.6 2.7 - 4.2 11/18/2017 [facility] CHEM PANEL eGFR 137 11/18/2017 Result Comment: The eGFR is calculated using the CKD-EPI formula. In most young, healthy individuals the eGFR will be >90 mL/min/1.73m2. The eGFR declines with age. An eGFR of 60-89 may be normal in some populations, particularly the elderly, for whom the CKD-EPI formula has not been extensively validated. Use of the eGFR is not recommended in the following populations:

Individuals with unstable creatinine concentrations, including patients and those with serious co-morbid conditions.

Patients with extremes in muscle mass or diet.

The data above are obtained from the National Kidney Disease Education Program (NKDEP) which additionally recommends that when the eGFR is used in patients with extremes of body mass index for purposes of drug dosing, the eGFR should be multiplied by the estimated BMI. [facility] CHEM PANEL Alk Phos 88 39 - 136 11/18/2017 [facility] CHEM PANEL Bili Total 0.3 0.2 - 1.3 11/18/2017 [facility] CHEM PANEL ALT 32 0 - 65 11/18/2017 [facility] CHEM PANEL AST 19 0 - 37 11/18/2017 [facility] CHEM PANEL Albumin Lvl 2.6 3.5 - 5.0 11/18/2017 [facility] CHEM PANEL Total Protein 6.2 6.4 - 8.4 11/18/2017 [facility] CHEM PANEL Calcium Lvl 8.4 8.5 - 10.5 11/18/2017 [facility] CHEM PANEL CO2 27 24 - 32 11/18/2017 [facility] CHEM PANEL Sodium Lvl 139 135 - 145 11/18/2017 [facility] CHEM PANEL Creatinine Lvl 0.43 0.50 - 1.40 11/18/2017 [facility] CHEM PANEL Chloride Lvl 106 95 - 109 11/18/2017 [facility] CHEM PANEL Potassium Lvl 4.2 3.5 - 5.1 11/18/2017 [facility] CHEM PANEL BUN 7 7 - 22 11/18/2017 [facility] CHEM PANEL Glucose Lvl 73 70 - 99 11/18/2017 [facility] CHEM PANEL Amylase Lvl 36 25 - 115 11/18/2017 [facility] CHEM PANEL Lipase Lvl 72 73 - 393 11/18/2017 [facility] HEMATOLOGY RDW 13.6 11.5 - 14.5 11/18/2017 [facility] HEMATOLOGY MCH 32.1 27.0 - 31.0 11/18/2017 [facility] HEMATOLOGY MCHC 35.4 32.0 - 36.0 11/18/2017 [facility] HEMATOLOGY MCV 90.6 80.0 - 98.0 11/18/2017 [facility] HEMATOLOGY WBC 11.3 3.7 - 10.4 11/18/2017 [facility] HEMATOLOGY Platelet 195 133 - 450 11/18/2017 [facility] HEMATOLOGY MPV 7.9 7.4 - 10.4 11/18/2017 [facility] HEMATOLOGY Hct 31.2 36.0 - 48.0 11/18/2017 [facility] HEMATOLOGY Hgb 11.0 12.0 - 16.0 11/18/2017 [facility] HEMATOLOGY RBC 3.44 4.20 - 5.40 11/18/2017 [facility] HEMATOLOGY Basophils 0.4 0.0 - 1.0 11/18/2017 [facility] HEMATOLOGY Neutrophils # 8.7 1.5 - 8.1 11/18/2017 [facility] HEMATOLOGY Eosinophils # 0.2 0.0 - 0.5 11/18/2017 [facility] HEMATOLOGY Lymphocytes # 1.8 1.0 - 5.5 11/18/2017 [facility] HEMATOLOGY Monocytes # 0.6 0.0 - 0.8 11/18/2017 [facility] HEMATOLOGY Monocytes 5.5 2.0 - 12.0 11/18/2017 [facility] HEMATOLOGY Eosinophils 1.8 0.0 - 4.0 11/18/2017 [facility] HEMATOLOGY Segs 76.4 45.0 - 75.0 11/18/2017 [facility] HEMATOLOGY Lymphocytes 15.9 20.0 - 40.0 11/18/2017 [facility] URINE AND STOOL UA Urobilinogen <=1.0 mg/dL 0.1 - 1.0 11/18/2017 [facility] URINE AND STOOL UA Bili Negative *NA* (11/17/17 7:24 PM) Negative 11/18/2017 [facility] URINE AND STOOL UA WBC 2 0 - 5 11/18/2017 [facility] URINE AND STOOL UA RBC <1 0 - 2 11/18/2017 [facility] URINE AND STOOL UA Nitrite Negative (11/17/17 7:24 PM) Negative 11/18/2017 [facility] URINE AND STOOL UA Blood Negative (11/17/17 7:24 PM) Negative 11/18/2017 [facility] URINE AND STOOL UA Leuk Est Negative (11/17/17 7:24 PM) Negative 11/18/2017 [facility] URINE AND STOOL UA Sq Epi Occasional /LPF Few /LPF 11/18/2017 [facility] URINE AND STOOL UA Bacteria Few /HPF None Seen /HPF 11/18/2017 [facility] URINE AND STOOL UA Glucose Negative mg/dL Negative mg/dL 11/18/2017 [facility] URINE AND STOOL UA Ketones Negative mg/dL Negative mg/dL 11/18/2017 [facility] URINE AND STOOL UA Turbidity Clear (11/17/17 7:24 PM) Clear 11/18/2017 [facility] URINE AND STOOL UA Color Light Yellow *NA* (11/17/17 7:24 PM) Yellow 11/18/2017 [facility] URINE AND STOOL UA pH 7.0 5.0 - 8.0 11/18/2017 [facility] URINE AND STOOL UA Spec Grav 1.004 <=1.030 11/18/2017 [facility] URINE AND STOOL UA Protein Negative mg/dL Negative mg/dL [facility] Nitrite Negative (09/05/17 9:17 PM) Negative 09/06/2017 [facility] URINE AND STOOL UA Blood Negative (09/05/17 9:17 PM) Negative 09/06/2017 [facility] URINE AND STOOL UA Bili Negative *NA* (09/05/17 9:17 PM) Negative 09/06/2017 [facility] URINE AND STOOL UA Sq Epi Many /LPF Few /LPF 09/06/2017 [facility] URINE AND STOOL UA Leuk Est Negative (09/05/17 9:17 PM) Negative 09/06/2017 [facility] URINE AND STOOL UA Turbidity Slight *ABN* (09/05/17 9:17 PM) Clear 09/06/2017 [facility] URINE AND STOOL UA Color Yellow *NA* (09/05/17 9:17 PM) Yellow 09/06/2017 [facility] URINE AND STOOL UA Mucus Few /LPF None Seen /LPF 09/06/2017 [facility] URINE AND STOOL UA Bacteria Occasional /HPF None Seen /HPF 09/06/2017 [facility] URINE AND STOOL UA RBC <1 0 - 2 09/06/2017 [facility] URINE AND STOOL UA WBC 1 0 - 5 09/06/2017 [facility] URINE AND STOOL UA Urobilinogen <=1.0 mg/dL 0.1 - 1.0 09/06/2017 [facility] Hyal Cast 1 0 - 2 09/06/2017 [facility] URINE AND STOOL UA pH 7.0 5.0 - 8.0 09/06/2017 [facility] URINE AND STOOL UA Spec Grav 1.010 <=1.030 09/06/2017 [facility] URINE AND STOOL UA Ketones Trace mg/dL Negative mg/dL 09/06/2017 [facility]A Glucose Negative mg/dL Negative mg/dL 09/06/2017 [facility] URINE AND STOOL UA Protein Negative mg/dL Negative mg/dL 09/06/2017 [facility] CHEM PANEL eGFR 134 09/05/2017 Result Comment: The eGFR is calculated using the CKD-EPI formula. In most young, healthy individuals the eGFR will be >90 mL/min/1.73m2. The eGFR declines with age. An eGFR of 60-89 may be normal in some populations, particularly the elderly, for whom the CKD-EPI formula has not been extensively validated. Use of the eGFR is not recommended in the following populations:

Individuals with unstable creatinine concentrations, including patients and those with serious co-morbid conditions.

Patients with extremes in muscle mass or diet.

The data above are obtained from the National Kidney Disease Education Program (NKDEP) which additionally recommends that when the eGFR is used in patients with extremes of body mass index for purposes of drug dosing, the eGFR should be multiplied by the estimated BMI. [facility] CHEM PANEL Bili Total 0.3 0.2 - 1.3 09/05/2017 [facility] CHEM PANEL Alk Phos 60 39 - 136 09/05/2017 [facility] CHEM PANEL AST 10 0 - 37 09/05/2017 [facility] CHEM PANEL Sodium Lvl 139 135 - 145 09/05/2017 [facility] CHEM PANEL BUN 6 7 - 22 09/05/2017 [facility] CHEM PANEL Albumin Lvl 3.1 3.5 - 5.0 09/05/2017 [facility] CHEM PANEL Total Protein 6.8 6.4 - 8.4 09/05/2017 [facility] CHEM PANEL Calcium Lvl 8.7 8.5 - 10.5 09/05/2017 [facility] CHEM PANEL ALT 14 0 - 65 09/05/2017 [facility] CHEM PANEL Glucose Lvl 86 70 - 99 09/05/2017 [facility] CHEM PANEL Creatinine Lvl 0.47 0.50 - 1.40 09/05/2017 [facility] CHEM PANEL Potassium Lvl 3.9 3.5 - 5.1 09/05/2017 [facility] CHEM PANEL CO2 27 24 - 32 09/05/2017 [facility] CHEM PANEL Chloride Lvl 105 95 - 109 09/05/2017 [facility] CHEM PANEL B/C Ratio 13 6 - 25 09/05/2017 [facility] CHEM PANEL AGAP 10.9 10.0 - 20.0 09/05/2017 [facility] CHEM PANEL A/G Ratio 0.8 0.7 - 1.6 09/05/2017 [facility] CHEM PANEL Globulin 3.7 2.7 - 4.2 09/05/2017 [facility] [place] [id number] 09/05/2017 [facility] HEMATOLOGY Segs 68.6 45.0 - 75.0 09/05/2017 [facility] HEMATOLOGY Eosinophils 1.1 0.0 - 4.0 09/05/2017 [facility] HEMATOLOGY Monocytes 7.1 2.0 - 12.0 09/05/2017 [facility] HEMATOLOGY Lymphocytes 22.9 20.0 - 40.0 09/05/2017 [facility] HEMATOLOGY Neutrophils # 7.0 1.5 - 8.1 09/05/2017 [facility] HEMATOLOGY Lymphocytes # 2.3 1.0 - 5.5 09/05/2017 [facility] HEMATOLOGY Basophils 0.3 0.0 - 1.0 09/05/2017 [facility] HEMATOLOGY Monocytes # 0.7 0.0 - 0.8 09/05/2017 [facility] HEMATOLOGY Eosinophils # 0.1 0.0 - 0.5 09/05/2017 [facility] HEMATOLOGY RBC 3.93 4.20 - 5.40 09/05/2017 [facility] HEMATOLOGY WBC 10.2 3.7 - 10.4 09/05/2017 [facility] HEMATOLOGY Hgb 12.2 12.0 - 16.0 09/05/2017 [facility] HEMATOLOGY MCHC 34.8 32.0 - 36.0 09/05/2017 [facility] HEMATOLOGY Hct 35.0 36.0 - 48.0 09/05/2017 [facility] HEMATOLOGY MCH 31.0 27.0 - 31.0 09/05/2017 [facility] HEMATOLOGY Platelet 205 133 - 450 09/05/2017 [facility] HEMATOLOGY RDW 12.9 11.5 - 14.5 09/05/2017 [facility] HEMATOLOGY MCV 89.1 80.0 - 98.0 09/05/2017 [facility] HEMATOLOGY MPV 8.2 7.4 - 10.4 09/05/2017 [facility] BLOOD BANK RESULTS ABO/Rh O POS 08/09/2017 [facility] CHEM PANEL eGFR 126 08/09/2017 Result Comment: The eGFR is calculated using the CKD-EPI formula. In most young, healthy individuals the eGFR will be >90 mL/min/1.73m2. The eGFR declines with age. An eGFR of 60-89 may be normal in some populations, particularly the elderly, for whom the CKD-EPI formula has not been extensively validated. Use of the eGFR is not recommended in the following populations:

Individuals with unstable creatinine concentrations, including patients and those with serious co-morbid conditions.

Patients with extremes in muscle mass or diet.

The data above are obtained from the National Kidney Disease Education Program (NKDEP) which additionally recommends that when the eGFR is used in patients with extremes of body mass index for purposes of drug dosing, the eGFR should be multiplied by the estimated BMI. [facility] CHEM PANEL Glucose Lvl 89 70 - 99 08/09/2017 [facility] CHEM PANEL Creatinine Lvl 0.56 0.50 - 1.40 08/09/2017 [facility] CHEM PANEL Calcium Lvl 8.7 8.5 - 10.5 08/09/2017 [facility] CHEM PANEL CO2 24 24 - 32 08/09/2017 [facility] CHEM PANEL Chloride Lvl 105 95 - 109 08/09/2017 [facility] CHEM PANEL Potassium Lvl 4.0 3.5 - 5.1 08/09/2017 [facility] CHEM PANEL Sodium Lvl 138 135 - 145 08/09/2017 [facility] CHEM PANEL BUN 10 7 - 22 08/09/2017 [facility] CHEM PANEL AGAP 13.0 10.0 - 20.0 08/09/2017 [facility] [place] [id number] 08/09/2017 [facility] HEMATOLOGY RDW 13.0 11.5 - 14.5 08/09/2017 [facility] HEMATOLOGY MPV 9.2 7.4 - 10.4 08/09/2017 [facility] HEMATOLOGY Platelet 209 133 - 450 08/09/2017 [facility] HEMATOLOGY Hct 38.1 36.0 - 48.0 08/09/2017 [facility] HEMATOLOGY MCV 90.6 80.0 - 98.0 08/09/2017 [facility] HEMATOLOGY MCH 31.2 27.0 - 31.0 08/09/2017 [facility] [place] [facility] MCHC 34.5 32.0 - 36.0 08/09/2017 [facility] [place] [facility] Hgb 13.1 12.0 - 16.0 08/09/2017 [facility] [place] HEMATOLOGY RBC 4.21 4.20 - 5.40 08/09/2017 [facility] [place] HEMATOLOGY WBC 10.0 3.7 - 10.4 08/09/2017 [facility] [place] HEMATOLOGY Monocytes # 0.6 0.0 - 0.8 08/09/2017 [facility] [place] HEMATOLOGY Eosinophils # 0.1 0.0 - 0.5 08/09/2017 [facility] [place] HEMATOLOGY Basophils # 0.1 0.0 - 0.2 08/09/2017 [facility] [place] HEMATOLOGY Lymphocytes # 1.7 1.0 - 5.5 08/09/2017 [facility] [place] HEMATOLOGY Segs-Bands # 7.5 1.5 - 8.1 08/09/2017 [facility] [place] HEMATOLOGY Basophils 0.6 0.0 - 1.0 08/09/2017 [facility] [place] HEMATOLOGY Segs 74.9 45.0 - 75.0 08/09/2017 [facility] [place] HEMATOLOGY Monocytes 6.1 2.0 - 12.0 08/09/2017 [facility] [place] HEMATOLOGY Lymphocytes 17.0 20.0 - 40.0 08/09/2017 [facility] [place] HEMATOLOGY Eosinophils 1.4 0.0 - 4.0 08/09/2017 [facility] [place] URINE AND STOOL UA Color Straw 08/09/2017 [facility] [place] URINE AND STOOL UA Ketones Negative 08/09/2017 [facility] [place] URINE AND STOOL UA Urobilinogen <=1.0 mg/dL 0.1 - 1.0 08/09/2017 [facility] URINE AND STOOL UA WBC 1 0 - 5 08/09/2017 [facility] [place] URINE AND STOOL UA RBC 1 0 - 2 08/09/2017 [facility] [place] URINE AND STOOL UA Bacteria Moderate /HPF None Seen /HPF 08/09/2017 [facility] URINE AND STOOL UA Nitrite Negative (08/09/17 4:17 PM) Negative 08/09/2017 [facility] [place] URINE AND STOOL UA Leuk Est Negative (08/09/17 4:17 PM) Negative 08/09/2017 [facility] [place] URINE AND STOOL UA Sq Epi Few /LPF Few /LPF 08/09/2017 [facility] [place] URINE AND STOOL UA Blood Moderate *ABN* (08/09/17 4:17 PM) Negative 08/09/2017 [facility] [place] URINE AND STOOL UA Bili Negative *NA* (08/09/17 4:17 PM) Negative 08/09/2017 [facility] [place] URINE AND STOOL UA pH 7.0 5.0 - 8.0 08/09/2017 [facility] [place] URINE AND STOOL UA Protein Negative mg/dL Negative mg/dL 08/09/2017 [facility] URINE AND STOOL UA Glucose Negative mg/dL Negative mg/dL 08/09/2017 [facility] URINE AND STOOL UA Spec Grav 1.001 <=1.030 08/09/2017 [facility] [place] URINE AND STOOL UA Turbidity Slight *ABN* (08/09/17 4:17 PM) Clear 08/09/2017 [facility] [place] URINE CHEM U Preg Posit andrey *ABN* (08/09/17 4:17 PM) Negative 08/09/2017 [facility] [place] URINE AND STOOL UA Urobilinogen <=1.0 mg/dL 0.1 - 1.0 07/26/2017 [facility] URINE AND STOOL UA Sq Epi Occasional /LPF Few /LPF 07/26/2017 [facility] URINE AND STOOL UA Leuk Est Trace *ABN* (07/26/17 6:46 PM) Negative 07/26/2017 [facility] URINE AND STOOL UA Nitrite Negative (07/26/17 6:46 PM) Negative 07/26/2017 [facility] URINE AND STOOL UA RBC <1 0 - 2 07/26/2017 [facility] URINE AND STOOL UA WBC 1 0 - 5 07/26/2017 [facility] URINE AND STOOL UA Bacteria Moderate /HPF None Seen /HPF 07/26/2017 [facility] URINE AND STOOL UA Glucose Negative mg/dL Negative mg/dL 07/26/2017 [facility] URINE AND STOOL UA Ketones Negative mg/dL Negative mg/dL 07/26/2017 [facility] URINE AND STOOL UA Protein Negative mg/dL Negative mg/dL [facility]A Bili Negative *NA* (07/26/17 6:46 PM) Negative 07/26/2017 [facility] URINE AND STOOL UA Blood Small *ABN* (07/26/17 6:46 PM) Negative 07/26/2017 [facility] URINE AND STOOL UA Color Light Yellow *NA* (07/26/17 6:46 PM) Yellow 07/26/2017 [facility] URINE AND STOOL UA Turbidity Slight *ABN* (07/26/17 6:46 PM) Clear 07/26/2017 [facility] URINE AND STOOL UA Spec Grav 1.002 <=1.030 07/26/2017 [facility] URINE AND STOOL UA pH 6.0 5.0 - 8.0 07/26/2017 [facility] MOLECULAR DIAGNOSTIC N gonorrhea by Amp Det (APTIMA) Negative *NA* (07/26/17 5:51 PM) Negative 07/26/2017 [facility] MOLECULAR DIAGNOSTIC Source APTIMA Endocervix *NA* (07/26/17 5:51 PM) 07/26/2017 [facility] MOLECULAR DIAGNOSTIC C trachomatis b y Amp Det (APTIMA) Negative *NA* (07/26/17 5:51 PM) Negative 07/26/2017 [facility] BLOOD BANK RESULTS ABO/Rh O POS 07/26/2017 [facility] ELECTROLYTES AGAP 12.9 10.0 - 20.0 07/26/2017 [facility] ELECTROLYTES A/G Ratio 0.8 0.7 - 1.6 07/26/2017 [facility] ELECTROLYTES Globulin 3.8 2.7 - 4.2 07/26/2017 [facility] ELECTROLYTES B/C Ratio 17 6 - 25 07/26/2017 [facility] ELECTROLYTES eGFR 124 07/26/2017 Result Comment: The eGFR is calculated using the CKD-EPI formula. In most young, healthy individuals the eGFR will be >90 mL/min/1.73m2. The eGFR declines with age. An eGFR of 60-89 may be normal in some populations, particularly the elderly, for whom the CKD-EPI formula has not been extensively validated. Use of the eGFR is not recommended in the following populations:

Individuals with unstable creatinine concentrations, including patients and those with serious co-morbid conditions.

Patients with extremes in muscle mass or diet.

The data above are obtained from the National Kidney Disease Education Program (NKDEP) which additionally recommends that when the eGFR is used in patients with extremes of body mass index for purposes of drug dosing, the eGFR should be multiplied by the estimated BMI. [facility] ELECTROLYTES Bili Total 0.3 0.2 - 1.3 07/26/2017 [facility] ELECTROLYTES Albumin Lvl 3.1 3.5 - 5.0 07/26/2017 [facility] ELECTROLYTES Alk Phos 74 39 - 136 07/26/2017 [facility] ELECTROLYTES AST 20 0 - 37 07/26/2017 [facility] ELECTROLYTES ALT 22 0 - 65 07/26/2017 [facility] ELECTROLYTES Potassium Lvl 3.9 3.5 - 5.1 07/26/2017 [facility] ELECTROLYTES Sodium Lvl 139 135 - 145 07/26/2017 [facility] ELECTROLYTES Creatinine Lvl 0.5 9 0.50 - 1.40 07/26/2017 [facility] ELECTROLYTES Total Protein 6.9 6.4 - 8.4 07/26/2017 [facility] ELECTROLYTES Chloride Lvl 106 95 - 109 07/26/2017 [facility] ELECTROLYTES Calcium Lvl 8.5 8.5 - 10.5 07/26/2017 [facility] ELECTROLYTES CO2 24 24 - 32 07/26/2017 [facility] ELECTROLYTES BUN 10 7 - 22 07/26/2017 [facility] ELECTROLYTES Glucose Lvl 77 70 - 99 07/26/2017 [facility] [place] [id number] 07/26/2017 [facility] HEMATOLOGY Lymphocytes # 1.7 1.0 - 5.5 07/26/2017 [facility] HEMATOLOGY Monocytes # 0.6 0.0 - 0.8 07/26/2017 [facility] HEMATOLOGY Basophils # 0.1 0.0 - 0.2 07/26/2017 [facility] HEMATOLOGY Eosinophils # 0.1 0.0 - 0.5 07/26/2017 [facility] HEMATOLOGY Monocytes 5.7 2.0 - 12.0 07/26/2017 [facility] HEMATOLOGY Segs-Bands # 7.7 1.5 - 8.1 07/26/2017 [facility] HEMATOLOGY Eosinophils 1.3 0.0 - 4.0 07/26/2017 [facility] HEMATOLOGY Basophils 0.7 0.0 - 1.0 07/26/2017 [facility] HEMATOLOGY Segs 75.9 45.0 - 75.0 07/26/2017 [facility] HEMATOLOGY Lymphocytes 16.4 20.0 - 40.0 07/26/2017 [facility] HEMATOLOGY Hct 36.3 36.0 - 48.0 07/26/2017 [facility] HEMATOLOGY Hgb 12.3 12.0 - 16.0 07/26/2017 [facility] HEMATOLOGY MCV 90.8 80.0 - 98.0 07/26/2017 [facility] HEMATOLOGY MPV 8.7 7.4 - 10.4 07/26/2017 [facility] HEMATOLOGY Platelet 214 133 - 450 07/26/2017 [facility] HEMATOLOGY WBC 10.2 3.7 - 10.4 07/26/2017 [facility] HEMATOLOGY RBC 4.00 4.20 - 5.40 07/26/2017 [facility] HEMATOLOGY RDW 12.8 11.5 - 14.5 07/26/2017 [facility] HEMATOLOGY MCH 30.7 27.0 - 31.0 07/26/2017 [facility] HEMATOLOGY MCHC 33.8 32.0 - 36.0 07/26/2017 [facility] URINE AND STOOL UA Mucus Few /LPF None Seen /LPF 01/26/2017 [facility] [place] URINE AND STOOL UA Leuk Est Negative (01/26/17 9:07 AM) Negative 01/26/2017 [facility] [place] URINE AND STOOL UA Urobilinogen 4.0 0.1 - 1.0 01/26/2017 [facility] [place] URINE AND STOOL UA Glucose Negative mg/dL Negative mg/dL 01/26/2017 [facility] URINE AND STOOL UA pH 7.0 5.0 - 8.0 01/26/2017 [facility] [place] URINE AND STOOL UA Nitrite Negative (01/26/17 9:07 AM) Negative 01/26/2017 [facility] [place] URINE AND STOOL UA Protein Negative mg/dL Negative mg/dL 01/26/2017 [facility] URINE AND STOOL UA Bili Negative *NA* (01/26/17 9:07 AM) Negative 01/26/2017 [facility] [place] URINE AND STOOL UA Color Yellow *NA* (01/26/17 9:07 AM) Yellow 01/26/2017 [facility] [place] URINE AND STOOL UA Blood Negative (01/26/17 9:07 AM) Negative 01/26/2017 [facility] [place] URINE AND STOOL UA Turbidity Clear (01/26/17 9:07 AM) Clear 01/26/2017 [facility] [place] URINE AND STOOL UA Spec Grav 1.017 <=1.030 01/26/2017 [facility] [place] URINE AND STOOL UA Ketones Negative 01/26/2017 [facility] [place] URINE AND STOOL UA RBC <1 0 - 2 01/26/2017 [facility] [place] URINE AND STOOL UA WBC 1 0 - 5 01/26/2017 [facility] [place] URINE AND STOOL UA Sq Epi Occasional /LPF Few /LPF 01/26/2017 [facility] [place] URINE CHEM U Preg Negat andrey (01/26/17 9:07 AM) Negative 01/26/2017 [facility] [place] MOLECULAR DIAGNOSTIC C trachomatis b y Amp Det (APTIMA) Negative *NA* (01/26/17 8:07 AM) Negative 01/26/2017 [facility] [place] MOLECULAR DIAGNOSTIC N gonorrhea by Amp Det (APTIMA) Negative *NA* (01/26/17 8:07 AM) Negative 01/26/2017 [facility] [place] MOLECULAR DIAGNOSTIC Source APTIMA Endocervix *NA* (01/26/17 8:07 AM) 01/26/2017 [facility] [place] CHEMISTRY Globulin 3.2 2.0 - 4.0 08/13/2011 Normal [facility] [place] CHEMISTRY A/G Ratio 0.8 0.7 - 1.6 08/13/2011 Normal [facility] [place] CHEMISTRY AGAP 16.1 10.0 - 20.0 08/13/2011 Normal [facility] [place] CHEMISTRY B/C Ratio 10 6 - 25 08/13/2011 Normal [facility] [place] CHEMISTRY Glucose Lvl 85 70 - 99 08/13/2011 Normal <sup>4</sup>Interpretive Data: Adult ref erence range values reflect the clinical guidelines
of the [employer]. [facility] [place] CHEMISTRY Sodium Lvl 144 135 - 145 08/13/2011 Normal [facility] [place] CHEMISTRY Creatinine Lvl 0.6 0.5 - 1.4 08/13/2011 Normal [facility] [place] CHEMISTRY CO2 26 24 - 32 08/13/2011 Normal [facility] [place] CHEMISTRY Potassium Lvl 4.1 3.5 - 5.1 08/13/2011 Normal [facility] [place] CHEMISTRY Chloride Lvl 106 95 - 109 08/13/2011 Normal [facility] [place] CHEMISTRY Albumin Lvl 2.7 3.5 - 5.0 08/13/2011 [facility] CHEMISTRY Calcium Lvl 8.1 8.5 - 10.5 08/13/2011 [facility] CHEMISTRY Total Protein 5.9 6.4 - 8.4 08/13/2011 [facility] CHEMISTRY ALT 43 0 - 65 08/13/2011 [facility] CHEMISTRY BUN 6 7 - 22 08/13/2011 [facility] CHEMISTRY Bili Total 0.2 0.2 - 1.3 08/13/2011 Normal [facility] [place] CHEMISTRY Alk Phos 73 39 - 136 08/13/2011 [facility] CHEMISTRY AST 33 0 - 37 08/13/2011 [facility] CHEMISTRY Magnesium Lvl 1.8 1.8 - 2.4 08/13/2011 Normal [facility] [place] HEMATOLOGY Basophils # 0.0 0.0 - 0.2 08/13/2011 [facility] HEMATOLOGY Eosinophils # 0.2 0.0 - 0.5 08/13/2011 [facility] HEMATOLOGY Monocytes # 0.3 0.0 - 0.8 08/13/2011 [facility] HEMATOLOGY Segs-Bands # 4.4 1.5 - 8.1 08/13/2011 [facility] HEMATOLOGY Eosinophils 2.3 0.0 - 4.0 08/13/2011 [facility] HEMATOLOGY Lymphocytes # 1.9 1.0 - 5.5 08/13/2011 [facility] HEMATOLOGY Basophils 0.6 0.0 - 1.0 08/13/2011 [facility] HEMATOLOGY Lymphocytes 27.5 20.0 - 40.0 08/13/2011 [facility] HEMATOLOGY Segs 65.2 45.0 - 75.0 08/13/2011 [facility] HEMATOLOGY Monocytes 4.4 2.0 - 12.0 08/13/2011 [facility] HEMATOLOGY MCV 85.3 81.0 - 99.0 08/13/2011 [facility] HEMATOLOGY MCH 29.3 27.0 - 31.0 08/13/2011 [facility] HEMATOLOGY RDW 13.2 11.5 - 14.5 08/13/2011 [facility] HEMATOLOGY MCHC 34.3 32.0 - 36.0 08/13/2011 [facility] HEMATOLOGY Platelet 184 133 - 450 08/13/2011 [facility] HEMATOLOGY MPV 8.2 7.4 - 10.4 08/13/2011 [facility] HEMATOLOGY Hct 32.0 36.0 - 48.0 08/13/2011 LOW [facility] [place] HEMATOLOGY Hgb 11.0 12.0 - 16.0 08/13/2011 LOW [facility] [place] HEMATOLOGY RBC 3.76 4.20 - 5.40 08/13/2011 [facility] HEMATOLOGY WBC 6.7 3.7 - 10.4 08/13/2011 Normal [facility] [place] BEDSIDE GLUCOSE TESTING Comment1 Notify RN/MD 08/13/2011 NA [facility] [place] BEDSIDE GLUCOSE TESTING Gluc POC Lif scn 92 70 - 99 08/13/2011 Normal <sup>1</sup>Interpretive Data: Upper Reportable Limit: 200 mg/dL. [facility] [place] CHEMISTRY AGAP 14.0 10.0 - 20.0 08/10/2011 Normal [facility] [place] CHEMISTRY CO2 22 24 - 32 08/10/2011 LOW [facility] [place] CHEMISTRY Chloride Lvl 106 95 - 109 08/10/2011 Normal [facility] [place] CHEMISTRY Calcium Lvl 7.1 8.5 - 10.5 08/10/2011 [facility] CHEMISTRY Potassium Lvl 3.0 3.5 - 5.1 08/10/2011 CRIT <sup>3</sup>Result Comment: [facility]10[facility] 0:20 [id number] by gr. Read back OK. [facility] [place] CHEMISTRY Glucose Lvl 113 70 - 99 08/10/2011 HI <sup>5</sup>Interpretive Data: Adult ref erence range values reflect the clinical guidelines
of the [employer]. [facility] [place] CHEMISTRY Sodium Lvl 139 135 - 145 08/10/2011 Normal [facility] [place] CHEMISTRY Creatinine Lvl 0.8 0.5 - 1.4 08/10/2011 Normal [facility] [place] CHEMISTRY BUN 9 7 - 22 08/10/2011 Normal [facility] [place] BEDSIDE GLUCOSE TESTING Gluc POC Lif scn 110 70 - 99 08/09/2011 [place] <sup>2</sup>Interpretive Data: Upper Reportable Limit: 200 mg/dL. [facility] [place] URINALYSIS UA Urobilinogen 0.1 - 1.0 08/09/2011 NA [facility] [place] URINALYSIS UA Blood Negat andrey (08/09/2011 14:00:00) Negati ve 08/09/2011 Normal [facility] [place] URINALYSIS UA Bili Negat andrey *NA* (08/09/2011 14:00:00) Negati ve 08/09/2011 NA [facility] [place] URINALYSIS UA Leuk Est Negat andrey (08/09/2011 14:00:00) Negati ve 08/09/2011 Normal [facility] [place] URINALYSIS UA Nitrite Negat andrey (08/09/2011 14:00:00) Negati ve 08/09/2011 Normal [facility] [place] URINALYSIS UA Sq Epi Few / LPF *NA* (08/09/2011 14:00:00) Few 08/09/2011 NA [facility] [place] URINALYSIS UA Ketones Negat andrey mg/dL *NA* (08/09/2011 14:00:00) Negati ve 08/09/2011 NA [facility] [place] URINALYSIS UA Glucose Negat andrey mg/dL *NA* (08/09/2011 14:00:00) Negati ve 08/09/2011 NA [facility] [place] URINALYSIS UA Protein Negat andrey mg/dL (08/09/2011 14:00:00) Negati ve 08/09/2011 Normal [facility] [place] URINALYSIS UA pH 8.0 5.0 - 8.0 08/09/2011 Normal [facility] [place] URINALYSIS UA Turbidity Clear (08/09/2011 14:00:00) Clear 08/09/2011 Normal [facility] [place] URINALYSIS UA Spec Grav 1.010 <=1.030 08/09/2011 Normal [facility] [place] URINALYSIS UA Color Light Yellow *NA* (08/09/2011 14:00:00) Yellow 08/09/2011 NA [facility] [place] HEMATOLOGY Basophils 0.0 0.0 - 1.0 08/09/2011 Normal [facility] [place] HEMATOLOGY Monocytes # 0.4 0.0 - 0.8 08/09/2011 Normal [facility] [place] HEMATOLOGY Segs-Bands # 10.2 1.5 - 8.1 08/09/2011 HI [facility] [place] HEMATOLOGY Lymphocytes # 0.4 1.0 - 5.5 08/09/2011 LOW [facility] [place] HEMATOLOGY Basophils # 0.0 0.0 - 0.2 08/09/2011 Normal [facility] [place] HEMATOLOGY Eosinophils # 0.0 0.0 - 0.5 08/09/2011 Normal [facility] [place] HEMATOLOGY Monocytes 3.5 2.0 - 12.0 08/09/2011 [facility] HEMATOLOGY Lymphocytes 3.9 20.0 - 40.0 08/09/2011 [facility] HEMATOLOGY Segs 92.5 45.0 - 75.0 08/09/2011 [facility] HEMATOLOGY Eosinophils 0.1 0.0 - 4.0 08/09/2011 [facility] HEMATOLOGY MPV 8.7 7.4 - 10.4 08/09/2011 [facility] HEMATOLOGY MCV 93.6 81.0 - 99.0 08/09/2011 [facility] HEMATOLOGY MCHC 31.1 32.0 - 36.0 08/09/2011 [facility] HEMATOLOGY Platelet 136 133 - 450 08/09/2011 [facility] HEMATOLOGY MCH 29.1 27.0 - 31.0 08/09/2011 [facility] HEMATOLOGY Hgb 8.9 12.0 - 16.0 08/09/2011 [facility] HEMATOLOGY RDW 13.6 11.5 - 14.5 08/09/2011 [facility] HEMATOLOGY RBC 3.06 4.20 - 5.40 08/09/2011 [facility] HEMATOLOGY Hct 28.6 36.0 - 48.0 08/09/2011 [facility] HEMATOLOGY WBC 11.1 3.7 - 10.4 08/09/2011 [facility] Microbiology Culture: Blood 08/09/2011 [facility] [place] Microbiology Culture: Blood 08/09/2011 [facility] [place] Pathology Reports No Data Provided for This Section Diagnostic Reports Report Value Date Source BPP w NST US F ETAL BIOPHYSICAL PROFILE: INDICATION: Decreased movement over the past 3 days. Estimated gestational age 27 weeks 6 days based on the last menstrual period. COMPARISON: No relevant priors available. FINDINGS: Limited scanning of the gravid uterus was performed as part of a biophysical profile. Presentation: Breech. heart rate: 153 BPM. Placenta location: Anterior. Grade: 1. SD ratio: 2.2. LUCITA: 14.8. Cervical length: 4.3 cm. breathing movements: 0. Gross body movements: 2. tone: 2. Amniotic fluid volume: 2. IMPRESSION: BPP 6/8. No points ordered for breathing movement. The findings were discussed with Dr Owen on 12/21/2017 1:52 PM FILLETER. End impression SL: [id number] 12/21/2017 [facility] Abdomen RLQ US Patient Name: Joshua ANTOINE : 1985; Age: 32 years y/o Female MR: [id number] Study: Abdomen RLQ US dated 11/17/2017. Clinical Indication: Right lower quadrant abdominal pain; Comparison: None Generator [employer] reported the patient did not have tenderness over the right lower quadrant during the study. No sonographic abnormality identified in the right lower quadrant of the abdomen. Bowel peristalsis was noted. The appendix is not identified and therefore cannot completely exclude changes of acute appendicitis. SL: [id number] 11/17/2017 [facility] Abdomen complete US Clinical I ndication: Abdominal pain. Comparison: 08/09/2011. TECHNIQUE: Grayscale and limited color sonographic evaluation of the abdomen was performed with standard technique.. Findings: Pancreas: Normal. IVC: Normal. Liver: Normal. Portal vein: Normal. Gallbladder: Normal. Right kidney: Normal, 12.6 cm. Common bile duct: Normal. Left kidney: Normal, 11.8 cm. Spleen: Normal. Aorta: Not imaged. IMPRESSION: Normal complete abdominal ultrasound. SL: [id number] 11/17/2017 [facility] < 14 weeks single gestation US PROCEDURE: TRANSABDOMINAL OB ULTRASOUND 1ST TRIMESTER HISTORY: - abdominal pain post pushing hard of her constipated stool constipated pain after straining. COMPARISON: 08/30/2017. TECHNIQUE: Grayscale and color sonographic evaluation of the pelvis was performed. FINDINGS: Uterus: The uterus measures 1 32 x 84 x 67 mm. There are no uterine masses. The uterus is anteverted and normal in echotexture. Endometrial stripe is . Gestation: There is a monochorionic monoamnionic single intrauterine with an estimated sonographic gestational age of 12 weeks and 0 days based on a crown-rump length of 52.4 mm. Yolk sac: Not detected.. heart tones detected: FHT detected at 161 beats per minute. . Subchorionic hemorrhage: A subchorionic hemorrhage is not detected.. OVARIES: The images demonstrate that the ovaries are normal in size and echotexture and demonstrate normal flow. Right ovary: 26 x 24 x 20 mm. Left ovary: 35 x 16 x 20 mm. ADNEXA: There are no adnexal masses or fluid collections. FREE FLUID: A small amount of probably physiologic free fluid is noted within the cul-de-sac. Study limited due to patient's body habitus. IMPRESSION: 1. There is a live monochorionic monoam nionic single intrauterine with an estimated sonographic gestational age of 12 weeks and 0 days and an estimated date of deliver of 03/17/2018. 2. A follow-up complete anatomic survey is recommended between 18-22 weeks. SL: [id number] 09/05/2017 [facility] < 14 weeks single gestation US : 1985. LMP: 06/11/2017. EGA (LMP): 8 weeks 3 days. RAMESH (LMP): 03/18/2018. Exam Date 08/09/2017. Comparison 07/26/2017 showed a 6 weeks 6 day intrauterine gestational sac. Technique: Reynolds scale transabdominal and transvaginal ultrasound of the pelvis with duplex doppler and spectral analysis. Clinical History: Vaginal Bleeding - vaginal bleeding early preg. Uterus: The uterus is anteverted and measures 9.4 x 6 x 4.6 cm. Isoechoic anterior intramural fibroid 3.3 x 2.7 cm. Gestational Sac: An elongated intrauterine gestational sac with double decidual reaction measures 4.3 x 1.5 x 5.5 cm. Mean sac diameter is 39 mm. This corresponds to a gestational age of 9 weeks and 1 days. Yolk sac: Present. pole. Present. [place] rump length: 1.9 cm. This corresponds to a gestational age of 8 weeks, 3 days. Cardiac activity: Present. Cardiac rate: 171 b/m. Subchorionic hemorrhage: None. Right ovary: The right ovary measures 2.4 x 2 x 2 cm. There is an anechoic 9 x 7 mm follicle.. There is normal doppler arterial and venous doppler flow. Left ovary: The left ovary is not visualized. Adnexa: No mass. Free fluid: There is no free fluid in the cul-de-sac. Impression: 1. Single viable intrauterine at 8 weeks, 6 days. This is concordant with menstrual dates. 2. Uterine fibroid. 08/09/2017 [facility] < 14 weeks single gestation US PROCEDURE: FIRST TRIMESTER ULTRASOUND INDICATION: First trimester with pelvic pain since this afternoon. Vaginal bleeding with lower abdominal pain and vomiting today. COMPARISON: None. FINDINGS: Patient body habitus limits evaluation. TRANSABDOMINAL SCAN: The uterus measures 10.4 x 3.8 x 5.4 cm containing an intrauterine elongated cystic structure measuring 2.70 x 2.31 x 0.69 cm with average diameter of 1.9 cm which would correlate with 6 weeks 6 days gestational age if this represents a gestational sac. However, no pole or yolk sac is seen within. The right ovary appears normal measuring 3.1 x 2.6 x 2.1 cm with arterial and venous waveforms documented. Left ovary is not seen. TRANSVAGINAL SCAN: Transvaginal evaluation was performed for better visualization of pelvic structures. Uterus measures approximately 8 x 4.8 x 5.7 cm containing intrauterine cystic structure measuring 1.91 x 0.98 x 2.11 cm with average diameter of 1.67 cm which would correlate with 6 weeks 4 days gestational age. No yolk sac or pole identified within. Neither ovary is visualized. No free pelvic fluid. IMPRESSION: 1. Intrauterine cystic structure could r epresent a gestational sac correlating with 6 weeks 4 days gestational age by mean sac diameter. However, no pole or yolk sac is seen within. Blighted ovum versus pseudogestational sac versus early . Correlate with trend of quantitative hCG levels and timing of last menstrual cycle. Short-term follow-up ultrasound be obtained as clinically indicated. 2. Nonvisualization of the left ovary. 3. Limited study. SL: RENAN 07/26/2017 [facility] Pelvis Complete US EXAM: US PE LVIS TRANSABDOMINAL DATE: 01/26/2017 8:12 AM FILLETER INDICATION: - cervicitis, L adnexal tenderness ADDITIONAL INFORMATION: G0 LMP: 01/02/1717; : No. COMPARISON: 08/09/2011 TECHNIQUE: Multiplanar grayscale and color Doppler ultrasound of the pelvis were obtained transabdominally through a distended urinary bladder FINDINGS: Uterus: Orientation: Anteverted Size: 9.0 x 3.6 x 4.4 cm Echogenicity: Normal. Masses: None. Cervix: Unremarkable Endometrium: 0.6 cm. No focal lesions. Right ovary: Size: 2.5 x 3.6 x 2.2 cm Cysts: None. Masses: None. Left ovary: Size: 2.2 x 2.8 x 2.3 cm Cysts: None. Masses: None. Adnexa: Normal. Free fluid: None. Other findings: None. IMPRESSION: Unremarkable pelvic ultrasound. 01/26/2017 [facility] Consultation Notes No Data Provided for This Section Discharge Summaries No Data Provided for This Section History and Physicals No Data Provided for This Section Vital Signs Vital Sign Value Date Comments Source Temperature Oral (F) 98.0 F 03/23/2018 [facility] Heart Rate 73 03/23/2018 [facility] Respitory Rate 18 03/23/2018 [facility] Systolic (mm Hg) 123 03/23/2018 [facility] Diastolic (mm Hg) 84 03/23/2018 [facility] Systolic (mm Hg) 104 03/23/2018 [facility] Diastolic (mm Hg) 62 03/23/2018 [facility] Temperature Oral (F) 98.2 F 03/23/2018 [facility] Heart Rate 74 03/23/2018 [facility] Respitory Rate 18 03/23/2018 [facility] Respitory Rate 18 03/23/2018 [facility] Systolic (mm Hg) 97 03/23/2018 [facility] Diastolic (mm Hg) 59 03/23/2018 [facility] Temperature Oral (F) 98.4 F 03/23/2018 [facility] Heart Rate 67 03/23/2018 [facility] BMI Calculated 46.86 03/20/2018 [facility] Weight 120 03/20/2018 [facility] Height 160.02 cm 03/20/2018 [facility] Systolic (mm Hg) 125 02/24/2018 [facility] Diastolic (mm Hg) 66 02/24/2018 [facility] Systolic (mm Hg) 144 02/24/2018 [facility] Diastolic (mm Hg) 68 02/24/2018 [facility] Weight 119.091 02/24/2018 [facility] Height 160.02 cm 02/24/2018 [facility] BMI Calculated 46.51 02/24/2018 [facility] Heart Rate 71 02/24/2018 [facility] Respitory Rate 16 02/24/2018 [facility] Temperature Oral (F) 98.5 F 02/24/2018 [facility] Systolic (mm Hg) 144 02/24/2018 [facility] Diastolic (mm Hg) 68 02/24/2018 [facility] Temperature Oral (F) 98.1 F 12/21/2017 [facility] Systolic (mm Hg) 98 12/21/2017 [facility] Diastolic (mm Hg) 51 12/21/2017 [facility] Systolic (mm Hg) 94 12/21/2017 [facility] Diastolic (mm Hg) 52 12/21/2017 [facility] Systolic (mm Hg) 95 12/21/2017 [facility] Diastolic (mm Hg) 53 12/21/2017 [facility] Respitory Rate 16 12/21/2017 [facility] BMI Calculated 43.69 12/21/2017 [facility] Height 165.1 cm 12/21/2017 [facility] Weight 119.091 12/21/2017 [facility] Temperature Oral (F) 98 F 12/21/2017 [facility] Heart Rate 88 12/21/2017 [facility] Respitory Rate 18 12/21/2017 [facility] Temperature Oral (F) 98 F 12/21/2017 [facility] Respitory Rate 18 11/18/2017 [facility] Systolic (mm Hg) 101 11/18/2017 [facility] Diastolic (mm Hg) 49 11/18/2017 [facility] Systolic (mm Hg) 109 11/18/2017 [facility] Diastolic (mm Hg) 59 11/18/2017 [facility] Systolic (mm Hg) 109 11/18/2017 [facility] Diastolic (mm Hg) 59 11/18/2017 [facility] Temperature Oral (F) 98.2 F 11/17/2017 [facility] Temperature Oral (F) 98.3 F 09/06/2017 [facility] Systolic (mm Hg) 127 09/06/2017 [facility] Diastolic (mm Hg) 82 09/06/2017 [facility] Respitory Rate 16 09/06/2017 [facility] Heart Rate 70 09/06/2017 [facility] Systolic (mm Hg) 128 09/05/2017 [facility] Diastolic (mm Hg) 84 09/05/2017 [facility] Temperature Oral (F) 98.2 F 09/05/2017 [facility] Respitory Rate 20 09/05/2017 [facility] Heart Rate 73 09/05/2017 [facility] Systolic (mm Hg) 129 08/09/2017 [facility] Diastolic (mm Hg) 65 08/09/2017 [facility] Heart Rate 70 08/09/2017 [facility] Respitory Rate 18 08/09/2017 [facility] Temperature Oral (F) 98.0 F 08/09/2017 [facility] Temperature Oral (F) 97.5 F 08/09/2017 [facility] Weight 100 08/09/2017 [facility] Heart Rate 64 08/09/2017 [facility] Respitory Rate 16 08/09/2017 [facility] Systolic (mm Hg) 127 08/09/2017 [facility] Diastolic (mm Hg) 77 08/09/2017 [facility] Systolic (mm Hg) 109 07/27/2017 [facility] Diastolic (mm Hg) 56 07/27/2017 [facility] Respitory Rate 16 07/27/2017 [facility] Heart Rate 76 07/27/2017 [facility] Weight 110.455 07/26/2017 [facility] BMI Calculated 43.14 07/26/2017 [facility] Heart Rate 74 07/26/2017 [facility] Respitory Rate 18 07/26/2017 [facility] Systolic (mm Hg) 116 07/26/2017 [facility] Diastolic (mm Hg) 76 07/26/2017 [facility] Height 160.02 cm 07/26/2017 [facility] Temperature Oral (F) 98.3 F 07/26/2017 [facility] Systolic (mm Hg) 100 07/24/2017 [facility] Diastolic (mm Hg) 59 07/24/2017 [facility] Heart Rate 60 07/24/2017 [facility] Respitory Rate 19 07/24/2017 [facility] Temperature Oral (F) 97.8 F 07/24/2017 [facility] Systolic (mm Hg) 109 07/24/2017 [facility] Diastolic (mm Hg) 61 07/24/2017 [facility] Respitory Rate 20 07/24/2017 [facility] Heart Rate 63 07/24/2017 [facility] Respitory Rate 20 07/24/2017 [facility] Systolic (mm Hg) 106 07/24/2017 [facility] Diastolic (mm Hg) 62 07/24/2017 [facility] Heart Rate 92 07/24/2017 [facility] Temperature Oral (F) 98.1 F 07/24/2017 [facility] Height 160.02 cm 07/24/2017 [facility] Heart Rate 76 01/26/2017 [facility] Systolic (mm Hg) 114 01/26/2017 [facility] Diastolic (mm Hg) 68 01/26/2017 [facility] Respitory Rate 18 01/26/2017 [facility] Respitory Rate 16 01/26/2017 [facility] Systolic (mm Hg) 111 01/26/2017 [facility] Diastolic (mm Hg) 58 01/26/2017 [facility] Heart Rate 74 01/26/2017 [facility] Respitory Rate 16 01/26/2017 [facility] Heart Rate 71 01/26/2017 [facility] Systolic (mm Hg) 111 01/26/2017 [facility] Diastolic (mm Hg) 63 01/26/2017 [facility] Height 160.02 cm 01/26/2017 [facility] Weight 100 01/26/2017 [facility] BMI Calculated 39.05 01/26/2017 [facility] Temperature Oral (F) 97.7 F 01/26/2017 [facility] Systolic (mm Hg) 112 08/13/2011 [facility] Diastolic (mm Hg) 67 08/13/2011 [facility] Respitory Rate 18 08/13/2011 [facility] Heart Rate 71 08/13/2011 [facility] Temperature Oral (F) 98.0 F 08/13/2011 [facility] Systolic (mm Hg) 111 08/13/2011 [facility] Respitory Rate 18 08/13/2011 [facility] Diastolic (mm Hg) 75 08/13/2011 [facility] Heart Rate 71 08/13/2011 [facility] Temperature Oral (F) 97.9 F 08/13/2011 [facility] Temperature Oral (F) 98.0 F 08/13/2011 [facility] Respitory Rate 20 08/13/2011 [facility] Systolic (mm Hg) 110 08/13/2011 [facility] Heart Rate 74 08/13/2011 [facility] Diastolic (mm Hg) 70 08/13/2011 [facility] Weight 151.847 08/09/2011 [facility] Height 157.48 cm 08/09/2011 [facility] Encounters Location Location Details Encounter Type Encounter Number Reason For Visit Attending Provider ADM Date DC Date Status Source [facility] Inpatient [id number] FEVER CHILLS ABDO [place] PAIN LOWER BACK PAIN SEVERE HEAD [facility] 08/10/2011 08/13/2011 Active [facility] Outpatient Imaging [facility] Outpt Diag Services [id number] 00 Kiran Carmona 09/02/2013 09/03/2013 OPID [facility] Emergency [id number] Mary Averick 01/26/2017 01/26/2017 [facility] Emergency [id number] Ld Iris 07/24/2017 07/24/2017 [facility] Emergency [id number] Shanelle Hendersonkevinkassi 07/26/2017 07/27/2017 [facility] Emergency [id number] elifchris Lakhwinder 08/09/2017 08/09/2017 [facility] Outpatient [id number] [facility] 08/30/2017 08/31/2017 [facility] Emergency [id number] Darian Byrne 09/05/2017 09/06/2017 [facility] Outpatient [id number] [facility] 11/01/2017 11/02/2017 [facility] Emergency [id number] Lavell Sridevi 11/17/2017 11/18/2017 [facility] Emergency [id number] Lexie Anahy 12/21/2017 12/21/2017 [facility] Outpatient [id number] [facility] 01/24/2018 01/25/2018 [facility] Outpatient [id number] [facility] 02/21/2018 02/22/2018 [facility] PreRecurring [id number] [facility] 02/21/2018 02/28/2018 [facility] Emergency [id number] Mary Roper 02/24/2018 02/24/2018 [facility] Inpatient [id number] [facility] 03/20/2018 03/23/2018 [facility] MARY BETH [id number] ABDOMINAL PAIN GOWRAPPALA HARSH Cancel [facility] Procedures Procedure Code Date Perfomer Comments Source Miscellaneous operations<sup>1</sup> [id number] I&D of lef t leg [facility] Assessment and Plan Assessment and Plan Date Source Extracted from:Title: Progress Note * Author: Kt Romero MD Date: 03/22/18 Impression and Plan 32 Y.O G 1 P1001 POD # 2 AFTER CSECTION [ AREST OF SECOND STAGE] , PROM, AF/VSS DOING WELL. 1. INCREASE ACTIVITY. 2. CONTINUE PO CARE. 3 LFT-MARGINALLY INCREASED. 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 1. ADMIT 2. ACTIVE MANAGEMENT. 3. GBS= NEG 4. EXPECT NVD. 03/23/2018 [facility] Extracted from:Title: Clinical Document Author: Doreen Lees DO Date: 07/26/17 CC- abdominal pain, 5 weeks pregant HPi- This is a 31 y/o G1 @ 6.4 wks by LMP 06/11/2017 who presents with left-sided abdominal pain that has been present for at least 2 weeks but suddenly worsened today while at work. She states the pain is intermittent, sharp and radiates from her left mid-abdomen to her left lower quadrant and suprapubic area. The pain comes and goes and she states she is not currently in pain and has not yet received pain medication. She became suddenly nauseated at work today and when she vomited, the pain suddenly intensified. It lasts for only a few mintues at a time before it resolves. It is not affected by movement or position or activity. She saw a Dr. Torres last week when she had an ultrasound due to the same milder pain and was found to have a gestational sac correlating to around 4 weeks gestation and was supposed to return in 2 weeks for repeat ultrasound. She did note some dark brown discharge after having ultrasound today. Denies fever, chills, continued nausea, headache, dizziness, chest pain, SOB. ROS- all 14 systems reviewed and negative unless noted above. 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 General- tearful, no acute distress Neck- trachea midline, supple CV- regular rate Pulm- respirations nonlabored Abdomen- soft, moderately tender from left mid-abdomen to LLQ and suprapubic area, no rebound/guarding - deferred NEuro- AAO x 4 Psych- tearful, appropriate mood/affect FRANKLIN- normal range of motion, no LE edema, no calf tenderness Hct: 36.3 % (07/26/17 17:28:00 CDT) Hgb: 12.3 g/dL (07/26/17 17:28:00 CDT) MCH: 30.7 pg (07/26/17 17:28:00 CDT) MCHC: 33.8 g/dL (07/26/17 17:28:00 CDT) MCV: 90.8 fL (07/26/17 17:28:00 CDT) MPV: 8.7 fL (07/26/17 17:28:00 CDT) Platelet: 214 K/CMM (07/26/17 17:28:00 CDT) RBC: 4 M/CMM Low (07/26/17 17:28:00 CDT) RDW: 12.8 % (07/26/17 17:28:00 CDT) WBC: 10.2 K/CMM (07/26/17 17:28:00 CDT) AGAP: 12.9 mEq/L (07/26/17 17:28:00 CDT) Chloride Lvl: 106 mEq/L (07/26/17 17:28:00 CDT) CO2: 24 mEq/L (07/26/17 17:28:00 CDT) Potassium Lvl: 3.9 mEq/L (07/26/17 17:28:00 CDT) Sodium Lvl: 139 mEq/L (07/26/17 17:28:00 CDT) A/G Ratio: 0.8 (07/26/17 17:28:00 CDT) Albumin Lvl: 3.1 g/dL Low (07/26/17 17:28:00 CDT) Alk Phos: 74 unit/L (07/26/17 17:28:00 CDT) ALT: 22 unit/L (07/26/17 17:28:00 CDT) AST: 20 unit/L (07/26/17 17:28:00 CDT) B/C Ratio: 17 (07/26/17 17:28:00 CDT) Bili Total: 0.3 mg/dL (07/26/17 17:28:00 CDT) BUN: 10 mg/dL (07/26/17 17:28:00 CDT) Calcium Lvl: 8.5 mg/dL (07/26/17 17:28:00 CDT) Creatinine Lvl: 0.59 mg/dL (07/26/17 17:28:00 CDT) eGFR: 124 mL/min/1.73m2 (07/26/17 17:28:00 CDT) Globulin: 3.8 g/dL (07/26/17 17:28:00 CDT) Glucose Lvl: 77 mg/dL (07/26/17 17:28:00 CDT) Total Protein: 6.9 g/dL (07/26/17 17:28:00 CDT) Serum HCG Pelvic ultrasound IMPRESSION: 1. Intrauterine cystic structure could r epresent a gestational sac correlating with 6 weeks 4 days gestational age by mean sac diameter. However, no pole or yolk sac is seen within. Blighted ovum versus pseudogestational sac versus early . Correlate with trend of quantitative hCG levels and timing of last menstrual cycle. Short-term follow-up ultrasound be obtained as clinically indicated. 2. Nonvisualization of the left ovary. 3. Limited study. Impression: 1. abdominal pain in , first tr imester- sac-like structure noted in uterus that correlates to patient's LMP, nonvisualization of left ovary and beta HCG 19,000. unable to determine at this time whether this is anembryonic versus nonvisualized left ectopic vs normal early with possible twin gestation given high HCG. advised patient of this situation and offered either discharge home and return to ED in 48-72 hours for repeat HCG, CBC and ultrasound or admission for observation and repeat studdies tomorrow. she opts to return to ED in 2-3 daysl; she understands warning signs and need for prompt return for intractable severe pain, heavy vaginal bleeding, etc. 2. 6 weeks gestation of 07/27/2017 [facility] Plan of Care No Data Provided for This Section Social History Social History Date Source Social History TypeResponse Alcohol Last use: not wtih . Exercise Exercise type: Walking. Sexual Sexually active: Yes. Substance Abuse Use: None. Smoking Status Former smoker; Previous treatment: None; Ready to change: No; Concerns about tobacco use in household: No; Exposure to Tobacco Smoke None; Cigarette Smoking Last 365 Days Yes; Reg Smoking Cessation Counseling No1 entered on: 03/20/18 1states I quit in june 201706/2018 [facility] Social History TypeResponse Smoking Status Never smoker; Concerns about tobacco use in household: No; Exposure to Tobacco Smoke None; Cigarette Smoking Last 365 Days No; Reg Smoking Cessation Counseling No entered on: 08/09/17 08/09/2017 [facility] Social History TypeResponse 09/03/2013 [place] [facility] Family History No Data Provided for This Section Advance Directives No Data Provided for This Section Functional Status No Data Provided for This Section
--- OUTSIDE RECORDS SUMMARY | 2019-10-05 02:30 | XMS REPORT | Clinical Summary ---
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 Never 08/06/2018 How many drinks containing alcohol do you have on No t asked a typical day when you are drinking? How often do you have six or more drinks on one Not asked occasion? Sex Assigned at Date Recorded Not on file Industry Job Start Date Occupation Not on file Not on file Not on file Travel End Travel History Travel Start No recent travel history available. 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
--- NOTE | 2019-10-05 02:54 | Diagnostic Imaging Report ---
EXAM: CT Abdomen and Pelvis WITHOUT contrast INDICATION: Bladder pain COMPARISON: None. TECHNIQUE: Abdomen and pelvis were scanned utilizing a multidetector helical scanner from the lung base to the pubic symphysis without administration of IV contrast. Absence of intravenous contrast decreases sensitivity for detection of focal lesions and vascular pathology. Coronal and sagittal reformations were obtained. Routine protocol was performed. IV CONTRAST: None ORAL CONTRAST: None COMPLICATIONS: None RADIATION DOSE: Total DLP: 763 mGy*cm Estimated effective dose: (DLP x 0.015 x size factor) mSv CTDIvol has been reviewed. It is below the limits set by the Radiation Protocol Committee (RPC). Dose modulation, iterative reconstruction, and/or weight based adjustment of the mA/kV was utilized to reduce the radiation dose to as low as reasonably achievable. FINDINGS: LINES and TUBES: Urinary bladder Forrest catheter in place, tip and retention balloon within the bladder lumen. LOWER THORAX: Unremarkable HEPATOBILIARY: No focal hepatic lesions. No biliary ductal dilation. GALLBLADDER: No radio-opaque stones or sludge. No wall thickening. SPLEEN: No splenomegaly. PANCREAS: No focal masses or ductal dilatation. ADRENALS: No adrenal nodules KIDNEYS/URETERS: No hydronephrosis. No cystic or solid mass lesions. No stones. GI TRACT: No abnormal distention, wall thickening, or evidence of bowel obstruction. Appendix is normal. PELVIC ORGANS/BLADDER: Unremarkable. LYMPH NODES: No lymphadenopathy. VESSELS: Unremarkable. PERITONEUM / RETROPERITONEUM: No free air or fluid. BONES: Degenerative changes. SOFT TISSUES: Unremarkable. IMPRESSION: No acute abnormality within the abdomen or pelvis on this noncontrast CT Signed by: Ld Bowens DO on 10/05/2019 2:50 AM
[2019-10-05] MEDS ORDERED: PROMETHAZINE HC25 M1 PO (02:56)
[2019-10-05] MEDS ORDERED: CIPRO500 MG PO (02:56)
[2019-10-05] MEDS ORDERED: FLOMAX0.4 MG PO (02:56)
[2019-10-05] MEDS ORDERED: IBUPROFEN IB200 MG PO (02:56)
[2019-10-05] MEDS ORDERED: TYLENOL # 31 EA PO (02:56)
== END 2019-10-05 03:34 | disposition home or self-care (01) ==
LOC: FSED 01:30
DX: R33.9 Retention of urine, unspecified (principal); N39.0 Urinary tract infection, site not specified; F17.210 Nicotine dependence, cigarettes, uncomplicated
CPT/HCPCS: 51700; 74176; 80053; 81003; 81025; 85025; 87086; 99284